=== PATIENT | male | born 1980 | race Caucasian/White ===

== ENCOUNTER 2017-06-02 12:10 | Emergency (ER) | payer OTHER ==
[~2017-06-02] VITALS: Ht 180.3 cm; Wt 74.6 kg
[2017-06-02 12:17] VITALS: TEMP 36.4; O2SAT 100; Ht 180.3 cm; Wt 74.6 kg
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
[2017-06-02] MEDS ORDERED: OPTIRAY 320 IV PRN (13:15)
[2017-06-02 13:34] LABS: ISTAT CREATININE 0.9 mg/dl (0.6-1.3); ISTAT HEMOGLOBIN 16.3 g/dl (14.0-18.0); ISTAT IONIZED CALCIUM 1.16 mmol/l (1.12-1.32)
[2017-06-02 13:42] LABS: BENZODIAZEPINE, URINE POS (NEG); COCAINE,URINE NEG (NEG); PHENCYCLIDINE, URINE NEG (NEG)
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
[2017-06-02 15:08] VITALS: BP 113/67; PULSE 76
[2017-06-06 00:36] LABS: HYDROXYETHYLFLURAZEPAM CONF NEGATIVE NG/ML (CUTOFF=50); HYDROXYMIDAZOLAM NEGATIVE NG/ML (CUTOFF=50); HYDROXYTRIAZOLAM CONF NEGATIVE NG/ML (CUTOFF=50); TEMAZEPAM CONF NEGATIVE NG/ML (CUTOFF=50)
== END 2017-06-02 15:17 | disposition home or self-care (01) ==
LOC: C.EDB 12:12 → C.EDC 15:17
DX: T14.8XXA Other injury of unspecified body region, initial encounter (principal); V53.5XXA Driver of pick-up truck or van injured in collision with car, pick-up truck or van in traffic accident, initial encounter; F17.210 Nicotine dependence, cigarettes, uncomplicated

== ENCOUNTER 2019-10-22 07:08 | Inpatient (IN) ==
--- OUTSIDE RECORDS SUMMARY | 2019-10-22 07:09 | External Medical Summary | Continuity of Care Document ---
:1980 Author Name Bernardo Cortes, Provider Address Unavailable Unavailable , Care Team Providers Name Role Phone Perla Briggs DO. Unavailable [email or web address] PERLA BRIGGS M.D. Unavailable Unavailable Problems Current smoker (305.1) (F17.200) Anxiety (300.00) (F41.9) Polyuria (788.42) (R35.8) Polydipsia (783.5) (R63.1) Abnormal blood chemistry (790.6) (R79.9) Allergies and Adverse Reactions No Known Drug Allergies (Allergy) Medications No Reported Medications Refills: 0 Procedures History of Appendectomy Status: Complete d History of Oral Surgery Tooth Extraction Status: Completed Immunizations Immunizations not documented Family History Grandfather Family history of prostate cancer (V16.42) (Z80.42) Status: Active Mother Family history of diabetes mellitus (V18.0) (Z83.3) Status: Active Social History - Smoking Status Smoker Plan of Treatment Planned Observations Planned Goals not documented Results No Known Results Results not documented Encounters Appointment; Perla Briggs DO 09-Feb-2016 14:45 Encounter Diagnosis: Problem not documented
[2019-10-22] MEDS ORDERED: diazePAM 5 MG TABLET PO ONE (07:25)
[2019-10-22] MEDS ORDERED: GABAPENTIN 1200MG ALCOHOL WITHDRAWAL LOAD PO STA (07:48)
[2019-10-22] MEDS ORDERED: MULTI-VITAMIN INFUSION 10 ML, THIAMINE HCL 100 MG, FOLIC ACID 1 MG in SODIUM CHLORIDE 0... IV ONE (07:48)
[2019-10-22] MEDS ORDERED: GABAPENTIN 600 MG TAB PO SCH ×2 (08:00→13:49)
[2019-10-22 08:12] LABS: Basophils # (auto) 0.03 K/uL (0-0.2); Basophils % (auto) 0.4 %; Eosinophils # (auto) 0.13 K/uL (0-0.5); Eosinophils % (auto) 1.8 %; Hematocrit (blood only) 48.5 % (42-52); Hemoglobin 16.5 g/dL (14.0-18.0); Immature Granulocytes # (auto) 0.03 K/uL (0.00-0.02); Immature Granulocytes % (auto) 0.4 %; Lymphocytes # (auto) 0.93 K/uL (1.2-3.4); Lymphocytes % (auto) 12.9 %; Mean Corpuscular Hemoglobin 33.7 pg (25-34); Mean Platelet Volume 10.3 fL (7.4-10.4); Monocytes # (auto) 0.83 K/uL (0.11-0.59); Monocytes % (auto) 11.5 %; Neutrophils # (auto) 5.26 K/uL (1.4-6.5); Platelet Count 207 K/uL (130-400); RDW Coefficient of Variation 13.4 % (11.5-14.5); RDW Standard Deviation 48.1 fL (36.4-46.3); White Blood Count 7.21 K/uL (4.8-10.8)
[2019-10-22 08:23] LABS: Partial Thromboplastin Time 28.2 Seconds (21.0-31.0); Prothrombin Time 10.3 Seconds (9.0-12.0)
[2019-10-22 08:28] LABS: Albumin Level 3.8 gm/dl (3.4-5.0); BUN Creatinine Ratio 9.7 (10-20); Calcium 8.9 mg/dl (8.5-10.1); Creatinine Clr Calc Pharmacy 106.6 ml/min; Est GFR (African American) 96.1; Est GFR (Non-African American) 82.9; Potassium 3.8 mmol/L (3.5-5.1)
[2019-10-22 08:33] LABS: Bilirubin,Total 0.7 mg/dl (0.2-1); Total Protein 7.8 gm/dl (6.4-8.2)
--- NOTE | 2019-10-22 10:39 | Emergency Department Note ---
Entered by Ally Ortiz acting as a scribe for History of Present Illness General Chief complaint: Alcohol Withdrawal Stated complaint: UNCONTROLLED SHAKING,STUTTERING,CONFUSION Source: patient History of Present Illness Onset (ago): day(s) 2 Location: head (alcohol withdrawal) Severity: similar to prior episodes Pain Consistency: + other (persistent) Quality: + other (alcohol withdrawal) Associated symptoms: + headaches, + shortness of breath and + other (Positive anxiety, panic attack, shaking. Negative trauma, visual or auditory hallucinations. ) Treatments prior to arrival: none The patient is a 38 year old male presenting to the Emergency Department complaining of persistent alcohol withdrawal starting 2 days ago. The patient reports that he normally drinks 24 oz of vodka daily for the past month. He states that 2 days ago he only drank 17 oz of vodka in an effort to ween himself off of alcohol. He explains that he then began shaking and describes this as large movements instead of a tremor. He notes that he then went back to drinking 24 oz of vodka per day but that his shakes have persisted. He adds that he has withdrawn from alcohol before and has been to a rehabilitation facility before where he experienced detox tremors but that his shakiness this time is not similar to that. The patient reports that he is anxious and short of breath. He states that he feels like he is having a panic attack. He explains that he has a headache and describes this as a fullness. 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 He adds that he was taking Kratom up until 1 week ago and is now concerned about his liver function. The patient denies recent trauma and auditory or visual hallucinations. 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 and A total of 10 systems reviewed and were otherwise negative Physical Exam Vital Signs Vital Signs - 24 hr 10/22/19 07:15 10/22/19 07:32 10/22/19 08:06 Temperature 36.8 C Temperature Source Oral Oral Pulse Rate 114 H 101 H Pulse Rhythm Regular Pulse Strength Normal Respiratory Rate 20 15 Respiratory Effort / Characteristics Non-Labored Spontaneous Respiratory Depth Normal Respiratory Pattern Regular Blood Pressure 157/111 H Blood Pressure Mean 126 Blood Pressure Position Sitting Pulse Oximetry 96 Oxygen Delivery Method Room Air Sepsis Recent Fever Within 48 Hours No Sepsis Action Taken by Nursing No Action Required 10/22/19 08:10 10/22/19 08:20 10/22/19 08:30 Temperature Temperature Source Pulse Rate 110 H 104 H 103 H Pulse Rhythm Pulse Strength Respiratory Rate 14 18 20 Respiratory Effort / Characteristics Respiratory Depth Respiratory Pattern Blood Pressure Blood Pressure Mean Blood Pressure Position Pulse Oximetry Oxygen Delivery Method Sepsis Recent Fever Within 48 Hours Sepsis Action Taken by Nursing 10/22/19 08:33 10/22/19 08:40 10/22/19 08:50 Temperature Temperature Source Pulse Rate 102 H 101 H 95 H Pulse Rhythm Pulse Strength Respiratory Rate 21 22 18 Respiratory Effort / Characteristics Respiratory Depth Respiratory Pattern Blood Pressure 155/104 H Blood Pressure Mean 122 Blood Pressure Position Pulse Oximetry Oxygen Delivery Method Sepsis Recent Fever Within 48 Hours Sepsis Action Taken by Nursing 10/22/19 09:00 10/22/19 09:01 10/22/19 09:10 Temperature Temperature Source Pulse Rate 90 90 98 H Pulse Rhythm Pulse Strength Respiratory Rate 18 Respiratory Effort / Characteristics Respiratory Depth Respiratory Pattern Blood Pressure 163/103 H Blood Pressure Mean 113 Blood Pressure Position Pulse Oximetry Oxygen Delivery Method Sepsis Recent Fever Within 48 Hours Sepsis Action Taken by Nursing 10/22/19 09:20 Temperature Temperature Source Pulse Rate 89 Pulse Rhythm Pulse Strength Respiratory Rate 17 Respiratory Effort / Characteristics Respiratory Depth Respiratory Pattern Blood Pressure Blood Pressure Mean Blood Pressure Position Pulse Oximetry Oxygen Delivery Method Sepsis Recent Fever Within 48 Hours Sepsis Action Taken by Nursing Vital signs reviewed. Tachycardic and hypertensive General: Anxious-appearing 38 year old male, in no significant distress. HEENT: No scleral icterus, PERRLA, neck supple. Atraumatic. Cardiovascular: Tachycardic rate and regular rhythm, no extra sounds. Pulmonary: Clear to auscultation bilaterally, normal work of breathing. Abdomen: Soft, nontender, nondistended, positive bowel sounds. Musculoskeletal: Atraumatic, no peripheral edema. Neurologic: Baseline tremor. Patient awake alert and oriented x 3. Skin: Slightly diaphoretic. Warm. No rash Course Course 0722: The patient was evaluated in room B6, and a complete history and physical examination were performed. 0756: I reevaluated the patient at this time. 09: I updated the patient at this time. 0930: I discussed the patients case with Dr. Deny MOE hospitalist. He will evaluate the patient for further management. Administered Medications Enoxaparin Sodium (Lovenox) 40 mg SQ Q24H [facility] Stop: 11/21/19 11:59 Last Admin: 10/22/19 13:13 Dose: Not Given Documented by: [id number] Folic Acid (Folvite) 1 mg PO QAM [facility] Stop: 11/21/19 11:30 Last Admin: 10/22/19 13:12 Dose: 1 mg Documented by: [id number] Gabapentin (Neurontin) 600 mg PO Q8H [facility] Stop: 10/23/19 22:01 Last Admin: 10/23/19 06:01 Dose: 600 mg Documented by: [id number] Potassium Chloride/Sodium Chloride (Normal Saline W/20 Meq Kcl) 20 meq in 1,000 mls @ 125 mls/hr IV .Q8H [facility] Stop: 11/21/19 11:30 Last Admin: 10/23/19 06:49 Dose: 125 mls/hr Documented by: [id number] Infusion: 10/23/19 06:49 Dose: 125 mls/hr Documented by: [id number] Admin: 10/22/19 22:50 Dose: 125 mls/hr Documented by: [id number] Infusion: 10/22/19 22:50 Dose: 0 mls/hr Documented by: [id number] Admin: 10/22/19 12:20 Dose: 125 mls/hr Documented by: [id number] Thiamine HCl (Vitamin B-1) 100 mg PO QAM [facility] Stop: 11/21/19 11:30 Last Admin: 10/22/19 13:12 Dose: 100 mg Documented by: [id number] Discontinued Medications Diazepam (Valium) 10 mg PO NOW ONE Stop: 10/22/19 07:26 Last Admin: 10/22/19 07:31 Dose: 10 mg Documented by: [id number] Gabapentin (Neurontin) 1,200 mg PO TODAY@ [facility] Stop: 10/22/19 08:01 Last Admin: 10/22/19 08:29 Dose: 1,200 mg Documented by: [id number] Gabapentin (Neurontin) 600 mg PO Q6H [facility] Stop: 10/22/19 20:01 Last Admin: 10/22/19 19:59 Dose: 600 mg Documented by: [id number] Admin: 10/22/19 13:12 Dose: 600 mg Documented by: [id number] Multivitamins 10 ml/ Thiamine HCl 100 mg/ Folic Acid 1 mg/Sodium Chloride 1,011.2 mls @ 1,011.2 mls/hr IV .Q1H [facility] Stop: 10/22/19 08:47 Last Infusion: 10/22/19 10:44 Dose: 0 mls/hr Documented by: [id number] Admin: 10/22/19 08:29 Dose: 1,011.2 mls/hr Documented by: [id number] Lorazepam (Ativan) 1 mg in 2 mls @ 2 mls/min IV NOW [facility] Stop: 10/22/19 23:39 Last Admin: 10/22/19 23:49 Dose: 2 mls/min Documented by: [id number] Lorazepam (Ativan) 1 mg PO ONE PRN; Protocol PRN Reason: EtoH Withdrawal AWSS 6-10 Last Admin: 10/22/19 22:54 Dose: 1 mg Documented by: [id number] Medical Decision Making Differential Diagnosis Etiologies such as toxicologic, alcohol withdrawal, infection, hypoglycemia, electrolyte abnormalities, cardiac sources, intracerebral event, neurologic, as well as others were entertained. Medical Records Attestation: I reviewed the patient's medical records. Home Medications Current Medication List: was personally reviewed by me Laboratory Data Attestation: I reviewed the patient's lab results. Result diagrams: 10/23/19 06:31 10/22/19 08:00 Lab Results 10/22/19 10/22/19 10/22/19 Range/Units 08:00 08:00 08:00 WBC 7.21 (4.8-10.8) K/uL RBC 4.90 (4.7-6.1) M/uL Hgb 16.5 (14.0-18.0) g/dL Hct 48.5 (42-52) % MCV 99.0 (80-100) fL MCH 33.7 (25-34) pg MCHC 34.0 (32-36) g/dL RDW Std Deviation 48.1 H (36.4-46.3) fL RDW Coeff of Funmi 13.4 (11.5-14.5) % Plt Count 207 (130-400) K/uL MPV 10.3 (7.4-10.4) fL Immature Gran % (Auto) 0.4 % Neut % (Auto) 73.0 % Lymph % (Auto) 12.9 % Dixie % (Auto) 11.5 % Eos % (Auto) 1.8 % Baso % (Auto) 0.4 % Immature Gran # (Auto) 0.03 H (0.00-0.02) K/uL Neut # (Auto) 5.26 (1.4-6.5) K/uL Lymph # (Auto) 0.93 L (1.2-3.4) K/uL [place] # (Auto) 0.83 H (0.11-0.59) K/uL Eos # (Auto) 0.13 (0-0.5) K/uL Baso # (Auto) 0.03 (0-0.2) K/uL PT (9.0-12.0) Seconds INR (0.9-1.1) APTT (21.0-31.0) Seconds PTT Ratio Sodium 135 L (136-145) mmol/L Potassium 3.8 (3.5-5.1) mmol/L Chloride 105 (98-107) mmol/L Carbon Dioxide 21 (21-32) mmol/L Anion Gap 9.0 (3-11) BUN 11 (7-18) mg/dl Creatinine 1.12 (0.6-1.4) mg/dl Est Cr Clr Drug Dosing 106.6 ml/min Est GFR ( Amer) 96.1 Est GFR (Non-Af Amer) 82.9 BUN/Creatinine Ratio 9.7 L (10-20) Glucose 111 H (70-99) mg/dl Calcium 8.9 (8.5-10.1) mg/dl Total Bilirubin 0.7 (0.2-1) mg/dl AST 54 H (15-37) U/L ALT 76 (12-78) U/L Alkaline Phosphatase 99 (45-117) U/L Total Protein 7.8 (6.4-8.2) gm/dl Albumin 3.8 (3.4-5.0) gm/dl Globulin 4.0 (2.5-4.0) gm/dl Albumin/Globulin Ratio 1.0 (0.9-2) Folate 5.91 (>5.38) ng/ml 10/22/19 Range/Units 08:00 WBC (4.8-10.8) K/uL RBC (4.7-6.1) M/uL Hgb (14.0-18.0) g/dL Hct (42-52) % MCV (80-100) fL MCH (25-34) pg MCHC (32-36) g/dL RDW Std Deviation (36.4-46.3) fL RDW Coeff of Funmi (11.5-14.5) % Plt Count (130-400) K/uL MPV (7.4-10.4) fL Immature Gran % (Auto) % Neut % (Auto) % Lymph % (Auto) % Dix[place] % (Auto) % Eos % (Auto) % Baso % (Auto) % Immature Gran # (Auto) (0.00-0.02) K/uL Neut # (Auto) (1.4-6.5) K/uL Lymph # (Auto) (1.2-3.4) K/uL Dixie # (Auto) (0.11-0.59) K/uL Eos # (Auto) (0-0.5) K/uL Baso # (Auto) (0-0.2) K/uL PT 10.3 (9.0-12.0) Seconds INR 1.0 (0.9-1.1) APTT 28.2 (21.0-31.0) Seconds PTT Ratio 1.0 Sodium (136-145) mmol/L Potassium (3.5-5.1) mmol/L Chloride (98-107) mmol/L Carbon Dioxide (21-32) mmol/L Anion Gap (3-11) BUN (7-18) mg/dl Creatinine (0.6-1.4) mg/dl Est Cr Clr Drug Dosing ml/min Est GFR ( Amer) Est GFR (Non-Af Amer) BUN/Creatinine Ratio (10-20) Glucose (70-99) mg/dl Calcium (8.5-10.1) mg/dl Total Bilirubin (0.2-1) mg/dl AST (15-37) U/L ALT (12-78) U/L Alkaline Phosphatase (45-117) U/L Total Protein (6.4-8.2) gm/dl Albumin (3.4-5.0) gm/dl Globulin (2.5-4.0) gm/dl Albumin/Globulin Ratio (0.9-2) Folate (>5.38) ng/ml ECG Data Attestation: I personally reviewed and interpreted this ECG as follows: Indication: + toxicologic Rate (beats per minute): 104 Rhythm: + sinus tachycardia ECG Intervals/blocks: + Normal QT-c ECG Findings: + Other (No acute ischemia.); no PACs and no PVCs Blood Pressure Blood Pressure Findings: Elevated blood pressure Blood Pressure Disposition: further management by hospitalist MDM Narrative Cardiac Monitoring: An order was placed for continuous cardiac monitoring. The monitor shows a rate of 89 with sinus rhythm. This patient was evaluated and appeared to be in no distress. IV access was obtained and lab work was drawn. Pt was medicated with po valium and a banana bag. Patient's alcohol level is undetectable. Laboratory work is fairly reassuring with the exception of a very mildly elevated AST. Patient did have improvement with his tachycardia and hypertension after fluids and benzodiazepines. He did receive 1200 mg of p.o. gabapentin. Patient will be evaluated by the hospitalist service for further management. Impression & Plan Alcohol withdrawal Discharge Plan Visit Data *Final* Discharge Date/Time: 10/22/19 10:29 Chief Complaint: Alcohol Withdrawal Stated Complaint: UNCONTROLLED SHAKING,STUTTERING,CONFUSION ED Provider: Sharon Gould ED Midlevel Provider: Herb Pimentel Discharge Problem: Alcohol withdrawal Patient Disposition: Admitted As Inpatient Discharge Instructions Interventions: ED Discharge Assessment Last Done: 10/22/19 10:29 Discharge Problem: Alcohol withdrawal Qualifiers: Complication of substance-induced condition: with unspecified complication Qualified Code(s): F10.239 - Alcohol dependence with withdrawal, unspecified The scribe's documentation has been prepared under my direction and personally reviewed by me in its entirety. I confirm that the note above accurately reflects all work, treatment, procedures, and medical decision making performed by me.
--- NOTE | 2019-10-22 11:09 | Electrocardiogram Report ---
Test Reason : Blood Pressure : / mmHG Vent. Rate : 104 BPM Atrial Rate : 104 BPM P-R Int : 156 ms QRS Dur : 082 ms QT Int : 340 ms P-R-T Axes : 043 053 027 degrees QTc Int : 447 ms Sinus tachycardia Otherwise normal ECG No previous ECGs available Confirmed by Pierce Henson [id number]) on 10/22/2019 11:08:48 AM Referred By: REFERRED SELF Confirmed By:Pierce Henson
[2019-10-22] MEDS ORDERED: ACETAMINOPHEN 325 MG TAB PO PRN (11:31)
[2019-10-22] MEDS ORDERED: ONDANSETRON INJ 2 MG/ML 2 ML VIAL IV PRN (11:31)
[2019-10-22] MEDS ORDERED: LORazepam 1 MG TAB PO PRN (11:31)
[2019-10-22] MEDS: NSS + 20MEQ KCL 20 MEQ/1,000 ML BAG IV SCH ×2 (12:20→22:50)
[2019-10-22] MEDS: GABAPENTIN 600 MG TAB PO SCH ×2 (13:12→19:59)
[2019-10-22] MEDS: FOLIC ACID 1 MG TAB PO SCH (13:12)
[2019-10-22] MEDS: THIAMINE HCL 100 MG TAB PO SCH (13:12)
[2019-10-22] MEDS: ENOXAPARIN INJ 40 MG/0.4 ML SYR SQ SCH (13:13)
--- NOTE | 2019-10-22 15:20 | History & Physical Report ---
Date of Service October 22, 2019 Assessment & Plan (1) Alcohol withdrawal: early in the withdrawal process, may not have started yet use Gabapentin scheduled taper, Ativan PO PRN Folic acid daily, thiamine daily check morning labs (2) Alcohol abuse: c/o abdominal distension check abdominal US to look at liver, look for ascites certainly liver function is intact as bilirubin, albumin, INR are all normal check ammonia in the morning long talk with patient and his mother about the dangers of alcohol abuse, cirrhosis he says he wants to quit again he is unsure of whether he wants to go to rehab (3) Tremor: could have essential tremor that he tries to medicate with alcohol will observe symptoms while here certainly his tremor was not significant while here (4) Panic attacks: will likely benefit from outpatient counseling, psych will continue to discuss History of Present Illness Chief Complaint: I have tremors Primary Care Provider: CHANDLER PCP 38 yo male with history of alcohol abuse who presented to the ED this morning with c/o tremors that were persistent despite drinking alcohol. He says that he has a long history of alcohol abuse, drinks vodka, up to 25 oz a day which is a fifth. He says that he completed rehab a year ago, reports that he was sober for 6 months and then he relapsed due to panic attacks and tremors. He said that his rehab was complicated because he went in "cold turkey" and ended up having seizures despite being on phenobarbital. He had to hospitalized briefly and was eventually sent back to rehab. He says that for the past 6 months he was not drinking daily, but he would "get drunk" several times a week. 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 His appetite is not great, however, he has gained weight. His mother says that his stomach has been distended every since leaving rehab, no edema. Moves his bowels regularly. The past month he progressed to drinking daily and his amount peaked at 25oz a day. He has been trying to cut back the past week, down to 17oz per the patient. He gets tremors which are not relieved with drinking which concerned him. He has anxiety and panic attacks. He does not follow with a therapist or psychiatrist, he self medicates with alcohol. He came to the ED this morning mostly because he was concerned the tremors were not going away. His last drink was 4 hours prior to arrival. Allergies Allergy/AdvReac Type Severity Reaction Status Date / Time No Known Allergies Allergy Verified 10/22/19 07:54 Home Medications Home Medications Medication Instructions Recorded Confirmed Type No Known Home Medications 10/22/19 10/22/19 History Past Med/Surg History Medical History History of alcohol abuse Surgical History History of appendectomy Family History (Updated 10/22/19 @ 15:26 by Vahid Barclay DO) Other Depression Social History Preferred Language: Eritrean Communication Ability: Effective Alarm Mechanic Required: No Beliefs That Will Affect Care: None Current Living Situation: Alone Other Information That Helps Us Care for You: No Feels Safe at Home: Yes Safety Concerns: Feels Safe At This Time Smoking Status: Current some day smoker Tobacco Type: cigars ; Cigarettes Per Day: 1 every 2 days ; Do You Dip or Chew Tobacco: No ; Second Hand Exposure: No ; Tobacco Cessation Education Requested by Patient: No Hx Alcohol Use: Yes Alcohol type: hard liquor Hx Substance Use: No Review of Systems Review of Systems: All systems reviewed & are unremarkable except as noted in HPI & below Constitutional: + weight gain; no fever, no chills, no sweats, no weight loss and no insomnia Respiratory: no cough and no dyspnea Cardiovascular: no chest pain and no edema Gastrointestinal: no abdominal pain, no nausea, no vomiting, no constipation and no diarrhea/loose stools Neurologic: no gait abnormality, no seizure-like activity, no headache(s) and no confusion Psychiatric: + anxiety, + panic attacks and + substance abuse Physical Exam Constitutional: WD/WN, vitals as above Eyes: PERRL, conjunctivae normal, anicteric sclerae ENMT: external ear and nose normal, oropharynx normal Neck: trachea midline, no thyromegaly Respiratory: normal respiratory effort, lungs clear to auscultation Cardiovascular: RRR, no murmur, no edema Gastrointestinal (Abdomen): Inspection/Auscultation: + abdomen distended and normal bowel sounds Percussion/Palpation: abdomen soft; abdomen nontender, no guarding, abdomen not rigid and no hepatosplenomegaly Musculoskeletal: no cyanosis or clubbing, extremities motor strength 5/5 Skin: no rashes, warm and dry Neurologic: patellar DTR's 2+ bilat, sensation intact and PERRL, EOMI, accommodation nl, no face palsy, no dysarthria Psychiatric: A+Ox3, euthymic affect Lymphatic: no cervical or axillary lymphadenopathy Results & Data Vital Signs (Past 12 Hours) Vital Signs Temp Pulse Resp BP BP Pulse Ox 10/22/19 11:29 36.7 C 19 154/95 H 99 10/22/19 11:00 80 15 137/97 97 10/22/19 10:30 90 23 158/106 H 97 10/22/19 10:01 98 H 19 10/22/19 10:00 96 H 20 137/100 10/22/19 09:48 88 20 10/22/19 09:20 89 17 10/22/19 09:10 98 H 10/22/19 09:01 90 10/22/19 09:00 90 18 163/103 H 10/22/19 08:50 95 H 18 10/22/19 08:40 101 H 22 10/22/19 08:33 102 H 21 155/104 H 10/22/19 08:30 103 H 20 10/22/19 08:20 104 H 18 10/22/19 08:10 110 H 14 10/22/19 08:06 101 H 15 10/22/19 07:15 36.8 C 114 H 20 157/111 H 96 10/22/19 06:06 103 H 17 132/77 Laboratory Results Laboratory Results - last 24 hr 10/22/19 10/22/19 10/22/19 08:00 08:00 08:00 WBC 7.21 RBC 4.90 Hgb 16.5 Hct 48.5 MCV 99.0 MCH 33.7 MCHC 34.0 RDW Std Deviation 48.1 H RDW Coeff of Funmi 13.4 Plt Count 207 MPV 10.3 Immature Gran % (Auto) 0.4 Neut % (Auto) 73.0 Lymph % (Auto) 12.9 [place] % (Auto) 11.5 Eos % (Auto) 1.8 Baso % (Auto) 0.4 Immature Gran # (Auto) 0.03 H Neut # (Auto) 5.26 Lymph # (Auto) 0.93 L [place] # (Auto) 0.83 H Eos # (Auto) 0.13 Baso # (Auto) 0.03 PT INR APTT PTT Ratio Sodium 135 L Potassium 3.8 Chloride 105 Carbon Dioxide 21 Anion Gap 9.0 BUN 11 Creatinine 1.12 Est Cr Clr Drug Dosing 106.6 Est GFR ( Amer) 96.1 Est GFR (Non-Af Amer) 82.9 BUN/Creatinine Ratio 9.7 L Glucose 111 H Calcium 8.9 Total Bilirubin 0.7 AST 54 H ALT 76 Alkaline Phosphatase 99 Total Protein 7.8 Albumin 3.8 Globulin 4.0 Albumin/Globulin Ratio 1.0 Folate 5.91 Ethyl Alcohol mg/dL 10/22/19 10/22/19 08:00 09:46 WBC RBC Hgb Hct MCV MCH MCHC RDW Std Deviation RDW Coeff of Funmi Plt Count MPV Immature Gran % (Auto) Neut % (Auto) Lymph % (Auto) [place] % (Auto) Eos % (Auto) Baso % (Auto) Immature Gran # (Auto) Neut # (Auto) Lymph # (Auto) [place] # (Auto) Eos # (Auto) Baso # (Auto) PT 10.3 INR 1.0 APTT 28.2 PTT Ratio 1.0 Sodium Potassium Chloride Carbon Dioxide Anion Gap BUN Creatinine Est Cr Clr Drug Dosing Est GFR ( Amer) Est GFR (Non-Af Amer) BUN/Creatinine Ratio Glucose Calcium Total Bilirubin AST ALT Alkaline Phosphatase Total Protein Albumin Globulin Albumin/Globulin Ratio Folate Ethyl Alcohol mg/dL < 3.0 Medications Administered Current Inpatient Medications Acetaminophen (Tylenol) 650 mg PO Q4H PRN PRN Reason: Pain or Fever Stop: 11/21/19 11:30 Enoxaparin Sodium (Lovenox) 40 mg SQ Q24H [facility] Stop: 11/21/19 11:59 Last Admin: 10/22/19 13:13 Dose: Not Given Documented by: Folic Acid (Folvite) 1 mg PO QAM [facility] Stop: 11/21/19 11:30 Last Admin: 10/22/19 13:12 Dose: 1 mg Documented by: Gabapentin (Neurontin) 600 mg PO Q6H [facility] Stop: 10/22/19 20:01 Last Admin: 10/22/19 13:12 Dose: 600 mg Documented by: Gabapentin (Neurontin) 600 mg PO Q8H [facility] Stop: 10/23/19 22:01 Gabapentin (Neurontin) 600 mg PO Q12H [facility] Stop: 10/24/19 22:01 Gabapentin (Neurontin) 600 mg PO Q24H [facility] Stop: 10/25/19 22:01 Potassium Chloride/Sodium Chloride (Normal Saline W/20 Meq Kcl) 20 meq in 1,000 mls @ 125 mls/hr IV .Q8H [facility] Stop: 11/21/19 11:30 Last Admin: 10/22/19 12:20 Dose: 125 mls/hr Documented by: Lorazepam (Ativan) 1 mg PO ONE PRN; Protocol PRN Reason: EtoH Withdrawal AWSS 6-10 Ondansetron HCl (Zofran) 4 mg IV Q6H PRN PRN Reason: Nausea Stop: 11/21/19 11:30 Thiamine HCl (Vitamin B-1) 100 mg PO QAM [facility] Stop: 11/21/19 11:30 Last Admin: 10/22/19 13:12 Dose: 100 mg Documented by: Code Status & VTE Plan Code Status full code VTE Prophylaxis Plan VTE Prophylaxis will be ordered: Yes PG Care Time/CCT Total # of Minutes Spent Total Time Spent with Patient: Total time spent is greater than 50% in coordi nation of care (as documented) at patient's floor/unit and/or counseling patient: Coding Level of Care Code 63682 Initial Inpt Care Lvl 2 Diagnoses Alcohol withdrawal F10.239 Complication of substance-induced condition: with unspecified complication Alcohol abuse F10.10 Tremor R25.1 Panic attacks F41.0 (1) Alcohol withdrawal Complication of substance-induced condition: with unspecified complication Qualified Code(s): F10.239 - Alcohol dependence with withdrawal, unspecified
--- NOTE | 2019-10-22 20:01 | Ultrasound Report ---
US abdomen complete CLINICAL HISTORY: Distension, swelling, alcohol abuse COMPARISON STUDY: CT of the abdomen and pelvis June 02, 2017. FINDINGS: This exam is compromised by suboptimal penetration. Hepatic echogenicity is increased. No h epatic lesions are identified. There is no biliary ductal dilatation or gallbladder is contracted. No gallstones are noted. The size of the spleen is normal. The pancreas is partially obscured. The panc reas appears slightly hypoechoic and prominent. This could be artifactual. There is no hydronephrosis . The right kidney measures 11.4 cm and the left measures 11.6 cm. The caliber of the abdominal aorta is normal. Visualized portions of the IVC are patent. No ascites is identified. IMPRESSION: 1. Increased hepatic echogenicity which favors fatty infiltration. 2. No gallstones or biliary ductal dilatation. Contracted gallbladder. 3. Hypoechoic pancreas. This may be artifactual however could be correlated with lipase level to excl ude acute pancreatitis. ACT 112: Negative or not required by law. Electronically signed by: Juventino Buchanan M.D. 10/22/2019 7:59 PM
[2019-10-22] MEDS ORDERED: Nursing to Pharmacy Communication ONE (20:39)
[2019-10-22 20:52] LABS: Amphetamines+Metham, Urine Neg (Neg); Barbiturates, Urine Neg (Neg); Benzodiazepine, Urine Neg (Neg); Cocaine, Urine Neg (Neg); MDMA (Ecstacy), Urine Neg (Neg); Methadone, Urine Neg (Neg); Opiate, Urine Neg (Neg); Phencyclidine, Urine Neg (Neg)
[2019-10-22] MEDS ORDERED: LORazepam 1 MG/2 ML VIAL IV STA (23:38)
[2019-10-23] MEDS ORDERED: GABAPENTIN 600 MG TAB PO SCH (03:49)
[2019-10-23] MEDS: GABAPENTIN 600 MG TAB PO SCH ×3 (06:01→22:04)
[2019-10-23 06:43] LABS: Hematocrit (blood only) 46.2 % (42-52); Hemoglobin 15.3 g/dL (14.0-18.0); Mean Corpuscular Hgb Conc 33.1 g/dL (32-36); Mean Corpuscular Volume 99.6 fL (80-100); Mean Platelet Volume 10.2 fL (7.4-10.4); Platelet Count 167 K/uL (130-400); RDW Coefficient of Variation 13.7 % (11.5-14.5); RDW Standard Deviation 49.7 fL (36.4-46.3); Red Blood Count 4.64 M/uL (4.7-6.1); White Blood Count 5.48 K/uL (4.8-10.8)
[2019-10-23] MEDS: NSS + 20MEQ KCL 20 MEQ/1,000 ML BAG IV SCH (06:49)
[2019-10-23 07:25] LABS: Albumin Level 3.2 gm/dl (3.4-5.0); BUN Creatinine Ratio 16.3 (10-20); Calcium 8.5 mg/dl (8.5-10.1); Creatinine Clr Calc Pharmacy 135.1 ml/min; Est GFR (African American) 125.7; Est GFR (Non-African American) 108.5; Potassium 3.9 mmol/L (3.5-5.1)
[2019-10-23 07:28] LABS: Albumin Globulin Ratio 0.9 (0.9-2); Bilirubin,Total 0.6 mg/dl (0.2-1); Globulin 3.4 gm/dl (2.5-4.0); Total Protein 6.6 gm/dl (6.4-8.2)
[2019-10-23] MEDS: THIAMINE HCL 100 MG TAB PO SCH (08:16)
[2019-10-23] MEDS: FOLIC ACID 1 MG TAB PO SCH (08:16)
--- NOTE | 2019-10-23 11:01 | Hospitalist Progress Note ---
Date of Service October 23, 2019 Assessment & Plan (1) Alcohol withdrawal: continue Gabapentin scheduled taper, Ativan PO PRN q12 Folic acid daily, thiamine daily CMP and CBC stable stop IV fluids as he is eating and drinking downgrade to medical floor no concerns for DT at this point (2) Alcohol abuse: c/o abdominal distension abdominal US shows some fatty infiltration, no ascites noted certainly liver function is intact as bilirubin, albumin, INR are all normal ammonia normal long talk with patient and his mother about the dangers of alcohol abuse, cirrhosis he says he wants to quit again he is unsure of whether he wants to go to rehab will discuss further the close he gets to discharge (3) Tremor: could have essential tremor that he tries to medicate with alcohol will observe symptoms while here certainly his tremor is not significant while here (4) Panic attacks: will likely benefit from outpatient counseling, psych will continue to discuss Admission and Anticipated Discharge Date Admission Date: October 22, 2019 Subjective patient sleeping or resting in bed most of the day woke the patient up, he then c/o some tremors, wondering if he could have Ativan discussed that he was not exhibiting active withdrawal eating well today reviewed labs, CMP and CBC stable discussed with him the results of the abdominal US, no ascites seen, some fatty changes in liver noted will downgrade to medical floor, d/c IV fluids Review of Systems Review of Systems: All systems reviewed & are unremarkable except as noted in HPI & below Neurologic: + tremor(s) Psychiatric: + abnormal sleep pattern (sleeping a lot during the day) and + anxiety Physical Exam Constitutional: WD/WN, vitals as above Eyes: PERRL, conjunctivae normal, anicteric sclerae ENMT: external ear and nose normal, oropharynx normal Neck: trachea midline, no thyromegaly Respiratory: normal respiratory effort, lungs clear to auscultation Cardiovascular: RRR, no murmur, no edema Gastrointestinal (Abdomen): Inspection/Auscultation: + abdomen distended and normal bowel sounds Percussion/Palpation: abdomen soft; abdomen nontender, no guarding, abdomen not rigid and no hepatosplenomegaly Musculoskeletal: no cyanosis or clubbing, extremities motor strength 5/5 Skin: no rashes, warm and dry Neurologic: patellar DTR's 2+ bilat, sensation intact and PERRL, EOMI, accommodation nl, no face palsy, no dysarthria Psychiatric: Orientation: alert and oriented x 3 Affect: + anxious affect Lymphatic: no cervical or axillary lymphadenopathy Results & Data ([facility]) Vital Signs (Past 12 Hours) Vital Signs Temp Pulse Pulse Resp BP BP Pulse Ox 10/23/19 08:00 77 10/23/19 07:25 36.9 C 90 18 151/103 H 98 10/23/19 03:31 36.7 C 78 18 143/96 H 97 10/23/19 00:00 96 H 10/22/19 23:14 36.6 C 87 19 157/99 H 99 Laboratory Results Laboratory Results - last 24 hr 10/22/19 10/23/19 10/23/19 Unknown 06:31 06:31 WBC 5.48 RBC 4.64 L Hgb 15.3 Hct 46.2 MCV 99.6 MCH 33.0 MCHC 33.1 RDW Std Deviation 49.7 H RDW Coeff of Funmi 13.7 Plt Count 167 MPV 10.2 Sodium 137 Potassium 3.9 Chloride 108 H Carbon Dioxide 24 Anion Gap 5.0 BUN 15 Creatinine 0.89 Est Cr Clr Drug Dosing 135.1 Est GFR ( Amer) 125.7 Est GFR (Non-Af Amer) 108.5 BUN/Creatinine Ratio 16.3 Glucose 95 Calcium 8.5 Total Bilirubin 0.6 AST 35 ALT 56 Alkaline Phosphatase 79 Ammonia Total Protein 6.6 Albumin 3.2 L Globulin 3.4 Albumin/Globulin Ratio 0.9 Urine Opiates Screen Neg Ur Methadone, Qual Neg Urine Barbiturates Neg Ur Phencyclidine (PCP) Neg U Amphetamin/Meth Scrn Neg MDMA (Ecstasy) Screen Neg U Benzodiazepines Scrn Neg Ur Cocaine Metabolite Neg U Marijuana (THC) Screen Neg 10/23/19 06:31 WBC RBC Hgb Hct MCV MCH MCHC RDW Std Deviation RDW Coeff of Funmi Plt Count MPV Sodium Potassium Chloride Carbon Dioxide Anion Gap BUN Creatinine Est Cr Clr Drug Dosing Est GFR ( Amer) Est GFR (Non-Af Amer) BUN/Creatinine Ratio Glucose Calcium Total Bilirubin AST ALT Alkaline Phosphatase Ammonia 25.0 Total Protein Albumin Globulin Albumin/Globulin Ratio Urine Opiates Screen Ur Methadone, Qual Urine Barbiturates Ur Phencyclidine (PCP) U Amphetamin/Meth Scrn MDMA (Ecstasy) Screen U Benzodiazepines Scrn Ur Cocaine Metabolite U Marijuana (THC) Screen Diagnostic Findings US abdomen complete CLINICAL HISTORY: Distension, swelling, alcohol abuse COMPARISON STUDY: CT of the abdomen and pelvis June 02, 2017. FINDINGS: This exam is compromised by suboptimal penetration. Hepatic echogenicity is increased. No hepatic lesions are identified. There is no biliary ductal dilatation or gallbladder is contracted. No gallstones are noted. The size of the spleen is normal. The pancreas is partially obscured. The pancreas appears slightly hypoechoic and prominent. This could be artifactual. There is no hydronephrosis. The right kidney measures 11.4 cm and the left measures 11.6 cm. The caliber of the abdominal aorta is normal. Visualized portions of the IVC are patent. No ascites is identified. IMPRESSION: 1. Increased hepatic echogenicity which favors fatty infiltration. 2. No gallstones or biliary ductal dilatation. Contracted gallbladder. 3. Hypoechoic pancreas. This may be artifactual however could be correlated with lipase level to exclude acute pancreatitis. Medications Administered Current Inpatient Medications Acetaminophen (Tylenol) 650 mg PO Q4H PRN PRN Reason: Pain or Fever Stop: 11/21/19 11:30 Enoxaparin Sodium (Lovenox) 40 mg SQ Q24H [facility] Stop: 11/21/19 11:59 Last Admin: 10/23/19 12:20 Dose: Not Given Documented by: Folic Acid (Folvite) 1 mg PO QAM [facility] Stop: 11/21/19 11:30 Last Admin: 10/23/19 08:16 Dose: 1 mg Documented by: Gabapentin (Neurontin) 600 mg PO Q8H [facility] Stop: 10/23/19 22:01 Last Admin: 10/23/19 13:46 Dose: 600 mg Documented by: Gabapentin (Neurontin) 600 mg PO Q12H [facility] Stop: 10/24/19 22:01 Gabapentin (Neurontin) 600 mg PO Q24H KEN Stop: 10/25/19 22:01 Lorazepam (Ativan) 1 mg PO Q12 PRN PRN Reason: Anxiety/Agitation Stop: 11/22/19 10:58 Last Admin: 10/23/19 11:42 Dose: 1 mg Documented by: Ondansetron HCl (Zofran) 4 mg IV Q6H PRN PRN Reason: Nausea Stop: 11/21/19 11:30 Thiamine HCl (Vitamin B-1) 100 mg PO QAM [facility] Stop: 11/21/19 11:30 Last Admin: 10/23/19 08:16 Dose: 100 mg Documented by: PG Care Time/CCT Total # of Minutes Spent Total Time Spent with Patient: Total time spent is greater than 50% in coordina tion of care (as documented) at patient's floor/unit and/or counseling patient: Coding Level of Care Code 22978 Subseq Hosp Care Lvl 2 Diagnoses Alcohol withdrawal F10.239 Complication of substance-induced condition: with unspecified complication Alcohol abuse F10.10 Tremor R25.1 Panic attacks F41.0 (1) Alcohol withdrawal Complication of substance-induced condition: with unspecified complication Qualified Code(s): F10.239 - Alcohol dependence with withdrawal, unspecified
[2019-10-23] MEDS: LORazepam 1 MG TAB PO PRN ×2 (11:42→23:57)
[2019-10-23] MEDS: ENOXAPARIN INJ 40 MG/0.4 ML SYR SQ SCH (12:20)
[2019-10-24] MEDS: THIAMINE HCL 100 MG TAB PO SCH (07:37)
[2019-10-24] MEDS: FOLIC ACID 1 MG TAB PO SCH (07:37)
[2019-10-24] MEDS ORDERED: GABAPENTIN 600 MG TAB PO SCH (07:49)
[2019-10-24] MEDS: GABAPENTIN 600 MG TAB PO SCH ×2 (09:53→22:05)
[2019-10-24] MEDS ORDERED: NURSING DECISION MEDICATION ONE (10:41)
[2019-10-24] MEDS ORDERED: SODIUM CHLORIDE 0.65% NA SOLN 45 ML (OCEAN) ONE (10:44)
[2019-10-24] MEDS ORDERED: SODIUM CHLORIDE 0.65% NA SOLN 45 ML (OCEAN) PRN (10:46)
--- NOTE | 2019-10-24 11:59 | Hospitalist Progress Note ---
Date of Service October 24, 2019 Assessment & Plan (1) Alcohol withdrawal: continue Gabapentin scheduled taper, Ativan PO PRN q12 Folic acid daily, thiamine daily CMP and CBC stable no concerns for DT at this point plan for d/c tomorrow, numbers for [facility] alcohol support given (2) Alcohol abuse: c/o abdominal distension abdominal US shows some fatty infiltration, no ascites noted certainly liver function is intact as bilirubin, albumin, INR are all normal ammonia normal long talk with patient and his mother about the dangers of alcohol abuse, cirrhosis he says he wants to quit again he will use outpatient services on discharge, provided with number for [facility] services (3) Tremor: could have essential tremor that he tries to medicate with alcohol will observe symptoms while here has a mild tremor today will start on Propranolol 40mg BID will need a PCP, refer to [facility] since he has no insurance (4) Panic attacks: will likely benefit from outpatient counseling, psych will continue to discuss but without insurance it will be difficult for him (5) Rhinorrhea: likely allergies continue Benadryl and added Flonase BID can provide script on discharge Admission and Anticipated Discharge Date Admission Date: October 22, 2019 Anticipated date of discharge: 10/25/19 Subjective patient feeling better today less tremors, asked about starting beta [place], told him we could try Propranolol discussed going home, he will be ready tomorrow eating well, ambulating, still with some mild withdrawal symptoms discussed a plan on discharge, will need PCP and international project manager discussed with him, he has no insurance will need to go to [facility], gave him numbers for [facility] alcohol support groups/counseling c/o rhinorrhea, Benadryl helped a little, will try some Flonase Review of Systems Review of Systems: All systems reviewed & are unremarkable except as noted in HPI & below Constitutional: no fever, no fatigue and no weakness Ear, Nose, Mouth, Throat: + nasal congestion and + nasal discharge Respiratory: no cough and no dyspnea Cardiovascular: no chest pain and no edema Gastrointestinal: no abdominal pain, no nausea, no vomiting, no constipation and no diarrhea/loose stools Physical Exam Constitutional: WD/WN, vitals as above Eyes: PERRL, conjunctivae normal, anicteric sclerae ENMT: Ears: no hearing impairment and no TM abnormality Nose: + nasal discharge Mouth: no oropharynx abnormality and no oral mucosal abnormality Neck: trachea midline, no thyromegaly Respiratory: normal respiratory effort, lungs clear to auscultation Cardiovascular: RRR, no murmur, no edema Gastrointestinal (Abdomen): Inspection/Auscultation: normal bowel sounds; abdomen not distended Percussion/Palpation: abdomen soft; abdomen nontender, no guarding, abdomen not rigid and no hepatosplenomegaly Musculoskeletal: no cyanosis or clubbing, extremities motor strength 5/5 Skin: no rashes, warm and dry Neurologic: patellar DTR's 2+ bilat, sensation intact and PERRL, EOMI, accommodation nl, no face palsy, no dysarthria Psychiatric: A+Ox3, euthymic affect Orientation: alert and oriented x 3 Affect: + anxious affect Lymphatic: no cervical or axillary lymphadenopathy Results & Data ([facility]) Vital Signs (Past 12 Hours) Vital Signs Temp Pulse Resp BP Pulse Ox 10/24/19 07:30 36.9 C 71 18 118/75 96 10/24/19 00:27 36.7 C 69 20 137/90 97 Medications Administered Current Inpatient Medications Acetaminophen (Tylenol) 650 mg PO Q4H PRN PRN Reason: Pain or Fever Stop: 11/21/19 11:30 Enoxaparin Sodium (Lovenox) 40 mg SQ Q24H [facility] Stop: 11/21/19 11:59 Last Admin: 10/23/19 12:20 Dose: Not Given Documented by: Folic Acid (Folvite) 1 mg PO QAM [facility] Stop: 11/21/19 11:30 Last Admin: 10/24/19 07:37 Dose: 1 mg Documented by: Gabapentin (Neurontin) 600 mg PO Q12H [facility] Stop: 10/24/19 22:01 Last Admin: 10/24/19 09:53 Dose: 600 mg Documented by: Gabapentin (Neurontin) 600 mg PO Q24H [facility] Stop: 10/25/19 22:01 Lorazepam (Ativan) 1 mg PO Q12 PRN PRN Reason: Anxiety/Agitation Stop: 11/22/19 10:58 Last Admin: 10/23/19 23:57 Dose: 1 mg Documented by: Ondansetron HCl (Zofran) 4 mg IV Q6H PRN PRN Reason: Nausea Stop: 11/21/19 11:30 Propranolol HCl (Inderal) 40 mg PO BID KEN Stop: 11/23/19 11:44 Sodium Chloride ([place] Nasal) 1 sprays NA PRN PRN PRN Reason: Dryness Stop: 11/23/19 10:45 Thiamine HCl (Vitamin B-1) 100 mg PO QAM [facility] Stop: 11/21/19 11:30 Last Admin: 10/24/19 07:37 Dose: 100 mg Documented by: PG Care Time/CCT Total # of Minutes Spent Total Time Spent with Patient: Total time spent is greater than 50% in coordination of care (as documented) at patient's floor/unit and/or counseling patient: Coding Level of Care Code 96308 Subseq Hosp Care Lvl 2 Diagnoses Alcohol withdrawal F10.239 Complication of substance-induced condition: with unspecified complication Alcohol abuse F10.10 Tremor R25.1 Panic attacks F41.0 Rhinorrhea J00 (1) Alcohol withdrawal Complication of substance-induced condition: with unspecified complication Qualified Code(s): F10.239 - Alcohol dependence with withdrawal, unspecified
[2019-10-24] MEDS: ENOXAPARIN INJ 40 MG/0.4 ML SYR SQ SCH (12:20)
[2019-10-24] MEDS: LORazepam 1 MG TAB PO PRN ×2 (12:20→22:07)
[2019-10-24] MEDS: PROPRANOLOL HCL 20 MG TAB PO SCH ×2 (12:47→20:30)
[2019-10-24] MEDS: FLUTICASONE PROPIONATE NA SPR 16 GM BTL SCH ×2 (20:31→23:12)
[2019-10-25] MEDS: FOLIC ACID 1 MG TAB PO SCH (07:30)
[2019-10-25] MEDS: PROPRANOLOL HCL 20 MG TAB PO SCH (07:30)
[2019-10-25] MEDS: THIAMINE HCL 100 MG TAB PO SCH (07:30)
[2019-10-25 08:03] LABS: Creatinine Clr Calc Pharmacy 129.3 ml/min; Est GFR (African American) 120.3; Est GFR (Non-African American) 103.8
--- NOTE | 2019-10-25 10:20 | Discharge Summary ---
Date of Service October 25, 2019 Admission HPI Per Admitting Provider 38 yo male with history of alcohol abuse who presented to the ED this morning with c/o tremors that were persistent despite drinking alcohol. He says that he has a long history of alcohol abuse, drinks vodka, up to 25 oz a day which is a fifth. He says that he completed rehab a year ago, reports that he was sober for 6 months and then he relapsed due to panic attacks and tremors. He said that his rehab was complicated because he went in "cold turkey" and ended up having seizures despite being on phenobarbital. He had to hospitalized briefly and was eventually sent back to rehab. He says that for the past 6 months he was not drinking daily, but he would "get drunk" several times a week. 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 His appetite is not great, however, he has gained weight. His mother says that his stomach has been distended every since leaving rehab, no edema. Moves his bowels regularly. The past month he progressed to drinking daily and his amount peaked at 25oz a day. He has been trying to cut back the past week, down to 17oz per the patient. He gets tremors which are not relieved with drinking which concerned him. He has anxiety and panic attacks. He does not follow with a therapist or psychiatrist, he self medicates with alcohol. He came to the ED this morning mostly because he was concerned the tremors were not going away. His last drink was 4 hours prior to arrival. Principal Diagnosis Alcohol abuse with acute withdrawal Discharge Exam Constitutional WD/WN, vitals as above Eyes PERRL, conjunctivae normal, anicteric sclerae ENMT external ear and nose normal, oropharynx normal Ears: no hearing impairment and no TM abnormality Nose: + nasal discharge Mouth: no oropharynx abnormality and no oral mucosal abnormality Neck trachea midline, no thyromegaly Respiratory normal respiratory effort, lungs clear to auscultation Cardiovascular RRR, no murmur, no edema Gastrointestinal (Abdomen) Inspection/Auscultation: normal bowel sounds; abdomen not distended Percussion/Palpation: abdomen soft; abdomen nontender, no guarding, abdomen not rigid and no hepatosplenomegaly Musculoskeletal no cyanosis or clubbing, extremities motor strength 5/5 Skin no rashes, warm and dry Neurologic patellar DTR's 2+ bilat, sensation intact and PERRL, EOMI, accommodation nl, no face palsy, no dysarthria Psychiatric A+Ox3, euthymic affect Orientation: alert and oriented x 3 Affect: + anxious affect Lymphatic no cervical or axillary lymphadenopathy Discharge Data Allergies Allergy/AdvReac Type Severity Reaction Status Date / Time No Known Allergies Allergy Verified 10/22/19 07:54 Consultations 10/22/19 09:41 ED Decision to Admit Stat Ordered Studies 10/22/19 14:07 US abdomen complete Routine Hospital Course (1) Alcohol withdrawal: treated with Gabapentin taper, Ativan PO PRN q12 Folic acid daily, thiamine daily CMP and CBC stable no concerns for DT at this point will d/c on Librium taper over two weeks to help with symptoms (2) Alcohol abuse: c/o abdominal distension abdominal US shows some fatty infiltration, no ascites noted certainly liver function is intact as bilirubin, albumin, INR are all normal ammonia normal long talk with patient and his mother about the dangers of alcohol abuse, cirrhosis he says he wants to quit again he will use outpatient services on discharge, provided with [facility] for [facility] nurse navigator offered to call and make appointments with [facility] and [facility] but he refused, wanted to call himself (3) Tremor: could have essential tremor that he tries to medicate with alcohol will observe symptoms while here has a mild tremor all the time started on Propranolol 40mg BID, tolerated well will need a PCP, refer to [facility] since he has no insurance (4) Panic attacks: will likely benefit from outpatient counseling, psych will continue to discuss but without insurance it will be difficult for him if he establishes with a PCP then they can refer for psychiatry (5) Rhinorrhea: likely allergies continue Benadryl and added Flonase BID can provide script on discharge Total Time Total Time Spent Total Time Spent (In Minutes): 31 minutes Total Time Includes: Examination of the Patient, Discharge Planning and Medication Reconciliation Discharge Plan Discharge Items Patient Disposition: Home - Self-Care Reason For Visit: alcohol withdrawal Discharge Diagnosis: Alcohol withdrawal Tremors Anxiety Condition on Discharge: Good Goals: stay sober improve control over tremors Activity: Resume your previous activity Driving/Machine Use: Resume 1 day after discharge Weightbearing: Full weightbearing Non-emergency contact: Primary Care Provider Call non-emergency contact if: you have any medication questions and your symptoms worsen Follow-up/Referrals: PCP,NO [Primary Care Provider] - (Please make a follow up appointment with you primary care doctor for within 7 days of discharge.) Diet: Regular Addtl Attending Provider Instructions: Medications: - PROPRANOLOL: 40MG twice a day to help with tremors - CHLORDIAZEPOXIDE: 25mg twice a day for 10 days then take daily for 10 days then stop - FLONASE: 2 sprays twice a day for nasal congestion, can use as needed - BENADRYL: use as needed for nasal congestion Alcohol withdrawal, alcohol abuse as we discussed, there is no evidence of cirrhosis at this time, liver grossly normal on US and albumin, INR, ammonia, liver enzymes all normal if you stop drinking now you can prevent cirrhosis you were treated with Gabapentin while here, no further dosing needed you also received some Ativan as needed will use chlordiazepoxide for withdrawal, recommend that you take 25mg twice a day for 10 days then 25mg daily for 10 days then stop you were given information on [facility] Alcohol support services by Sara Katz, my nurse navigator, please call them today when you get home get information on AA meetings, get a sponsor you need to take control of your disease now before you do irreversible damage to your liver Essential tremors, anxiety started on Propranolol 40mg twice a day, continue this dose as it will help tremors as we discussed, I cannot start you on anxiety medication at this time as I do not follow patients in a clinic, this should be done by a PCP who can follow your progress you were given information on [facility], recommend that you call them today to set up appt they can possibly refer you for therapy/psychiatry evaluations it is essential that you get proper care so that you no longer self medicate with alcohol Pending Studies at Discharge: No Stand-Alone Forms: [employer], Work/School Release (Inpt), Smoking Cessation Medications and DC Order Prescriptions: New propranolol 40 mg tablet 40 mg PO BID 30 Days Qty: 60 RF: 2 fluticasone propionate 50 mcg/actuation [place],Suspension 2 spray NA BID 10 Days Qty: 15.8 RF: 1 chlordiazepoxide HCl 25 mg capsule 25 mg PO BID PRN (Reason: alcohol withdrawal) Qty: 30 RF: 0 No Action No Known Home Medications RF: 0 Discharge Orders: Discharge Order (Routine); Ordered 10/25/19 Ordered By: Vahid Barclay Admission Data Admit Date/Time: 10/22/19 09:32 Attending Provider: Vahid Barclay Admit Provider: Vahid Barclay Primary Care Provider: PCP,NO Other Providers: Vahid Barclay Other Interventions: Discharge Summary Assessment (RN) Last Done: 10/25/19 10:10 DC Date/Time DO NOT enter until pt leaves facility: 10/25/19 11:05 Coding Level of Care Code D/C Day Management >30 mins Diagnoses Alcohol withdrawal F10.239 Complication of substance-induced condition: with unspecified complication Alcohol abuse F10.10 Tremor R25.1 Panic attacks F41.0 Rhinorrhea J00
[2019-10-25] MEDS: LORazepam 1 MG TAB PO PRN (10:23)
[2019-10-25] MEDS ORDERED: GABAPENTIN 600 MG TAB PO SCH ×2 (19:49→22:00)
== END 2019-10-25 11:05 | disposition home or self-care (01) | DRG 897 ==
LOC: ED 07:08 → 2S 09:32 → 2W 10-23 11:00 → 4W 10-23 18:20

== ENCOUNTER 2019-12-17 12:26 | Inpatient (IN) ==
[2019-12-17] MEDS ORDERED: MULTI-VITAMIN INFUSION 10 ML, THIAMINE HCL 100 MG, FOLIC ACID 1 MG in SODIUM CHLORIDE 0... IV ONE (12:56)
[2019-12-17] MEDS ORDERED: LORazepam 2 MG/4 ML VIAL IV STA (13:00)
--- NOTE | 2019-12-17 13:12 | Emergency Department Note ---
Impression & Plan Alcohol withdrawal, Alcohol abuse ED Provider Note NAME: FRANCE COWAN AGE: 39 SEX: M ARRIVES VIA: Walk-In INFORMANT: [Patient] ED PROVIDER(S): Yrn Colvin MD CHIEF COMPLAINT: Alcohol withdrawal PLAN: Disposition: Admitted Condition: Guarded MEDICAL DECISION MAKING: The patient is a 39-year-old male with a significant history of alcohol abuse. He presented with concerns for withdrawal and request for treatment. The patient was tachycardic and hypertensive. Cardiac monitoring, EKG, chest x-ray, blood work and urinalysis were performed. The patient was hydrated with normal saline and was given a banana bag. IV Ativan was administered. The patient did require several doses of IV Ativan. The patient had a consultation placed with internal medicine for inpatient management due to concerns about alcohol withdrawal. He does have mild elevation of his LFTs but coags are normal. His alcohol level is moderately elevated at 0.264. Triage Nursing notes reviewed and agree them. [Prior medical records reviewed] prior history of alcohol withdrawal and alcohol abuse Vital Signs: reviewed and remarkable for hypertension and tachycardia Differential diagnosis: Alcohol intoxication, alcohol withdrawal, toxicologic, infection, hypoglycemia, electrolyte abnormalities, cardiac sources, intracerebral event, neurologic, trauma, as well as other pathologies. ER treatment provided: Normal saline 1 L bolus Banana bag 1 L IV Ativan times multiple doses Diagnostics interpreted by me: ECG: Rate: 120 Rhythm: Sinus tachycardia [place]: Normal QRS: Normal ST segements: No elevation or depression. Other: No PACs or PVCs. Cardiac Monitoring: Cardiac monitoring ordered by me: The patient was placed on continuous cardiac monitoring and observed. It revealed a sinus tachycardic rhythm at 119 beats per minute without ectopy or evidence of dysrhythmia. Laboratory studies: Unremarkable CBC and chemistry panel. The patient does have mild elevation of his LFTs. He has moderate elevation of his alcohol level. Tylenol salicylate levels negative. Urine drug screen pending Imaging studies: Imaging studies: Chest x-ray. Findings: A chest x-ray was performed and revealed no pneumothorax, effusion, infiltrate, pulmonary edema, free air under the diaphragm, or wide mediastinum. Impression: No acute disease. Consultation(s): Dr. Buster Perez of [facility] internal medicine. Case was discussed. The patient was evaluated in the ER for further management. HPI: The patient is a 39 year old male who presents to the Emergency Room with complaints of alcohol withdrawal. This started several weeks ago and is worse nia. The patient also notes the following associated symptoms, tremors, anxiety, diarrhea, occasional bright red blood per rectum, and concerns for dying due to withdrawal. The patient has been using different kinds of alcohol for relieving factors. Current pain is rated as 0/10. The patient has been consuming over 1/5 of alcohol a day. He is also drinking a box of wine. He has tried to slowly wean himself off alcohol by using measured amounts however he notes when he drops his amount he begins to have tremors. He did drink alcohol today prior to coming in and is currently feeling better because of that. He is employed. He notes that he had a cough 10 days ago and was tested for co ronavirus. This was negative. Pt denies trauma, headache, fevers, chills, diaphoresis, visual changes, neck pain, chest pain, breathing difficulties, nausea, vomiting, abdominal pain, back pain, melena, urinary symptoms, numbness, weakness, lymphadenopathy, rash, or other complaints. ROS: See above HPI for pertinent positives & negatives. A total of [10] systems reviewed and were otherwise negative. PAST MEDICAL HISTORY:Alcohol withdrawal, alcohol abuse, seizure PAST SURGICAL HISTORY:Appendectomy FAMILY HISTORY:[See Below] SOCIAL HISTORY:Significant alcohol abuse. 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 VITALS:[See Below] PHYSICAL EXAMINATION: GENERAL: Awake, alert, intoxicated-appearing, in no distress HENT: Normocephalic, atraumatic. Oropharynx unremarkable. EYES: Normal conjunctiva. Sclera non-icteric. NECK: Inspection normal. Non-tender. Supple. No nuchal rigidity. FROM. No masses. RESPIRATORY: Clear to auscultation. No wheezes. No rales. Normal respiratory effort. CARDIAC: Moderately tachycardic rate. Normal rhythm. No murmurs. No rubs. Extremities warm and well perfused. Pulses equal. No JVD. GI: Soft, non-distended. No tenderness to palpation. No rebound or guarding. No masses. RECTAL: Deferred. MUSCULOSKELETAL: Atraumatic. Chest examination reveals no tenderness. The back is symmetrical on inspection without obvious abnormality. There is no CVA tenderness to palpation. No joint edema. LOWER EXTREMITIES: Calves are equal size bilaterally and non-tender. No edema. No discoloration. NEURO: Intoxicated sensorium. No sensory or motor deficits noted. No asterixis. No drift. SKIN: No rash or jaundice noted. ED COURSE: [Critical Care:] [None] Yrn Colvin MD Past Med/Surg History Family History (Updated 10/22/19 @ 15:26 by Vahid Barclay DO) Other Depression Social History Preferred Language: Azeri Communication Ability: Effective Pmo Analyst Required: No Beliefs That Will Affect Care: None Current Living Situation: Alone Other Information That Helps Us Care for You: No Feels Safe at Home: Yes Safety Concerns: Feels Safe At This Time Smoking Status: Current some day smoker Tobacco Type: cigars ; Cigarettes Per Day: 1 every 2 days ; Do You Dip or Chew Tobacco: No ; Second Hand Exposure: No ; Tobacco Cessation Education Requested by Patient: No Hx Alcohol Use: Yes Alcohol type: hard liquor Hx Substance Use: No Allergies Allergies Allergy/AdvReac Type Severity Reaction Status Date / Time No Known Allergies Allergy Verified 12/17/19 13:36 Home Meds Previous Rx's Medication Instructions Recorded chlordiazepoxide HCl 25 mg PO BID PRN #30 cap 10/25/19 fluticasone propionate 2 spray NA BID 10 Days #15.8 ml 10/25/19 propranolol 40 mg PO BID 30 Days #60 tab 10/25/19 Results & Data (ED) Vital Signs Vital Signs - 24 hr 12/17/19 12:32 12/17/19 13:11 12/17/19 13:19 Temperature 36.8 C Temperature Source Oral Pulse Rate 121 H 126 H 123 H Pulse Rate [Apical] Pulse Rhythm Regular Pulse Strength Normal Respiratory Rate 20 17 17 Respiratory Effort / Characteristics Non-Labored Spontaneous Respiratory Depth Normal Respiratory Pattern Regular Blood Pressure 138/117 H 129/91 Blood Pressure [Left Arm] Blood Pressure Mean 124 113 Blood Pressure Mean [Left Arm] Blood Pressure Position Sitting Pulse Oximetry 95 96 Oxygen Delivery Method Room Air Sepsis Recent Fever Within 48 Hours No Sepsis New/Unexplained Change in Mental Status No Sepsis Action Taken by Nursing No Action Required 12/17/19 13:20 12/17/19 13:27 12/17/19 14:26 Temperature Temperature Source Pulse Rate 124 H 117 H Pulse Rate [Apical] 123 H Pulse Rhythm Regular Pulse Strength Respiratory Rate 20 22 Respiratory Effort / Characteristics Respiratory Depth Respiratory Pattern Blood Pressure Blood Pressure [Left Arm] 125/94 Blood Pressure Mean Blood Pressure Mean [Left Arm] 104 Blood Pressure Position Pulse Oximetry 96 96 96 Oxygen Delivery Method Room Air Room Air Sepsis Recent Fever Within 48 Hours Sepsis New/Unexplained Change in Mental Status Sepsis Action Taken by Nursing 12/17/19 14:56 Temperature Temperature Source Pulse Rate Pulse Rate [Apical] 125 H Pulse Rhythm Pulse Strength Respiratory Rate 22 Respiratory Effort / Characteristics Respiratory Depth Respiratory Pattern Blood Pressure Blood Pressure [Left Arm] 107/84 Blood Pressure Mean Blood Pressure Mean [Left Arm] 91 Blood Pressure Position Pulse Oximetry Oxygen Delivery Method Sepsis Recent Fever Within 48 Hours Sepsis New/Unexplained Change in Mental Status Sepsis Action Taken by Nursing Laboratory Data Result diagrams: 12/17/19 13:11 12/17/19 13:11 Lab Results 12/17/19 12/17/19 12/17/19 Range/Units 13:11 13:11 13:11 WBC 9.51 (4.8-10.8) K/uL RBC 5.75 (4.7-6.1) M/uL Hgb 19.1 H (14.0-18.0) g/dL Hct 53.9 H (42-52) % MCV 93.7 (80-100) fL MCH 33.2 (25-34) pg MCHC 35.4 (32-36) g/dL RDW Std Deviation 44.3 (36.4-46.3) fL RDW Coeff of Funmi 13.0 (11.5-14.5) % Plt Count 265 (130-400) K/uL MPV 10.1 (7.4-10.4) fL Immature Gran % (Auto) 0.6 % Neut % (Auto) 49.6 % Lymph % (Auto) 29.7 % Forest % (Auto) 15.9 % Eos % (Auto) 3.8 % Baso % (Auto) 0.4 % Immature Gran # (Auto) 0.06 H (0.00-0.02) K/uL Neut # (Auto) 4.72 (1.4-6.5) K/uL Lymph # (Auto) 2.82 (1.2-3.4) K/uL [place] # (Auto) 1.51 H (0.11-0.59) K/uL Eos # (Auto) 0.36 (0-0.5) K/uL Baso # (Auto) 0.04 (0-0.2) K/uL Absolute Nucleated RBC 0.00 (0-0) K/uL Nucleated RBC % (auto) 0.0 % PT 10.9 (9.0-12.0) Seconds INR 1.0 (0.9-1.1) Sodium 135 L (136-145) mmol/L Potassium 4.5 (3.5-5.1) mmol/L Chloride 99 (98-107) mmol/L Carbon Dioxide 23 (21-32) mmol/L Anion Gap 12.0 H (3-11) BUN 11 (7-18) mg/dl Creatinine 0.87 (0.6-1.4) mg/dl Est Cr Clr Drug Dosing 134.4 ml/min Est GFR ( Amer) 126.0 Est GFR (Non-Af Amer) 108.7 BUN/Creatinine Ratio 12.1 (10-20) Glucose 113 H (70-99) mg/dl Calcium 8.4 L (8.5-10.1) mg/dl Magnesium 2.6 H (1.8-2.4) mg/dl Total Bilirubin 0.4 (0.2-1) mg/dl AST 117 H (15-37) U/L ALT 164 H (12-78) U/L Alkaline Phosphatase 116 (45-117) U/L Total Creatine Kinase 73 (39-308) U/L Troponin I < 0.015 (0-0.045) ng/ml Total Protein 8.2 (6.4-8.2) gm/dl Albumin 4.0 (3.4-5.0) gm/dl Globulin 4.2 H (2.5-4.0) gm/dl Albumin/Globulin Ratio 1.0 (0.9-2) Lipase 144 (73-393) U/L Specimen Hemolysis Salicylates (2.8-20) mg/dl Acetaminophen (10-30) ug/ml Ethyl Alcohol mg/dL (0-3) mg/dl 12/17/19 12/17/19 Range/Units 13:11 13:11 WBC (4.8-10.8) K/uL RBC (4.7-6.1) M/uL Hgb (14.0-18.0) g/dL Hct (42-52) % MCV (80-100) fL MCH (25-34) pg MCHC (32-36) g/dL RDW Std Deviation (36.4-46.3) fL RDW Coeff of Funmi (11.5-14.5) % Plt Count (130-400) K/uL MPV (7.4-10.4) fL Immature Gran % (Auto) % Neut % (Auto) % Lymph % (Auto) % [place] % (Auto) % Eos % (Auto) % Baso % (Auto) % Immature Gran # (Auto) (0.00-0.02) K/uL Neut # (Auto) (1.4-6.5) K/uL Lymph # (Auto) (1.2-3.4) K/uL [place] # (Auto) (0.11-0.59) K/uL Eos # (Auto) (0-0.5) K/uL Baso # (Auto) (0-0.2) K/uL Absolute Nucleated RBC (0-0) K/uL Nucleated RBC % (auto) % PT (9.0-12.0) Seconds INR (0.9-1.1) Sodium (136-145) mmol/L Potassium (3.5-5.1) mmol/L Chloride (98-107) mmol/L Carbon Dioxide (21-32) mmol/L Anion Gap (3-11) BUN (7-18) mg/dl Creatinine (0.6-1.4) mg/dl Est Cr Clr Drug Dosing ml/min Est GFR ( Amer) Est GFR (Non-Af Amer) BUN/Creatinine Ratio (10-20) Glucose (70-99) mg/dl Calcium (8.5-10.1) mg/dl Magnesium (1.8-2.4) mg/dl Total Bilirubin (0.2-1) mg/dl AST (15-37) U/L ALT (12-78) U/L Alkaline Phosphatase (45-117) U/L Total Creatine Kinase (39-308) U/L Troponin I (0-0.045) ng/ml Total Protein (6.4-8.2) gm/dl Albumin (3.4-5.0) gm/dl Globulin (2.5-4.0) gm/dl Albumin/Globulin Ratio (0.9-2) Lipase (73-393) U/L Specimen Hemolysis Salicylates < 1.7 L (2.8-20) mg/dl Acetaminophen < 2 L (10-30) ug/ml Ethyl Alcohol mg/dL 264.8 H (0-3) mg/dl Administered Medications Lorazepam (Ativan) 2 mg in 4 mls @ 4 mls/min IV Q10M PRN PRN Reason: Alcohol Withdrawal Stop: 01/16/20 12:59 Last Admin: 12/17/19 14:57 Dose: 4 mls/min Documented by: [id number] Admin: 12/17/19 13:52 Dose: 4 mls/min Documented by: [id number] Discontinued Medications Multivitamins 10 ml/ Thiamine HCl 100 mg/ Folic Acid 1 mg/Sodium Chloride 1,011.2 mls @ 1,011.2 mls/hr IV .Q1H ONE Stop: 12/17/19 13:55 Last Infusion: 12/17/19 14:20 Dose: 0 mls/hr Documented by: [id number] Admin: 12/17/19 13:19 Dose: 1,011.2 mls/hr Documented by: [id number] Lorazepam (Ativan) 2 mg in 4 mls @ 4 mls/min IV NOW STA Stop: 12/17/19 13:01 Last Admin: 12/17/19 13:23 Dose: 4 mls/min Documented by: [id number] Discharge Plan Visit Data Chief Complaint: Detox Request Stated Complaint: WITHDRAWL, FEVER, COUGH, SOB TESTED AT [facility] ED Provider: Yrn Colvin Discharge Problem: Alcohol withdrawal, Alcohol abuse Patient Disposition: Admitted As Inpatient Discharge Instructions Interventions: ED Discharge Assessment Last Done: 12/17/19 15:39
--- NOTE | 2019-12-17 13:16 | XRay Report ---
XR chest 1V portable CLINICAL HISTORY: tachycardia, alcohol withdrawal COMPARISON STUDY: CT scan dated 06/02/2017 FINDINGS: The heart is normal in size. There is no lobar consolidation. There is no overt failure. Th ere are no pleural effusions. There is mild subtle interstitial prominence. IMPRESSION: Subtle interstitial prominence. No evidence of focal pulmonary consolidation. No evidence of overt failure. ACT 112: Negative or not required by law. Electronically signed by: Dmitriy Bone M.D. 12/17/2019 1:14 PM
[2019-12-17 13:34] LABS: Basophils # (auto) 0.04 K/uL (0-0.2); Basophils % (auto) 0.4 %; Eosinophils # (auto) 0.36 K/uL (0-0.5); Eosinophils % (auto) 3.8 %; Hematocrit (blood only) 53.9 % (42-52); Hemoglobin 19.1 g/dL (14.0-18.0); Immature Granulocytes # (auto) 0.06 K/uL (0.00-0.02); Immature Granulocytes % (auto) 0.6 %; Lymphocytes # (auto) 2.82 K/uL (1.2-3.4); Lymphocytes % (auto) 29.7 %; Mean Corpuscular Hemoglobin 33.2 pg (25-34); Mean Corpuscular Hgb Conc 35.4 g/dL (32-36); Mean Corpuscular Volume 93.7 fL (80-100); Mean Platelet Volume 10.1 fL (7.4-10.4); Monocytes # (auto) 1.51 K/uL (0.11-0.59); Monocytes % (auto) 15.9 %; Neutrophils # (auto) 4.72 K/uL (1.4-6.5); Neutrophils % (auto) 49.6 %; Platelet Count 265 K/uL (130-400); RDW Standard Deviation 44.3 fL (36.4-46.3); Red Blood Count 5.75 M/uL (4.7-6.1); White Blood Count 9.51 K/uL (4.8-10.8)
[2019-12-17 13:40] LABS: Prothrombin Time 10.9 Seconds (9.0-12.0)
[2019-12-17 13:47] LABS: Alanine Aminotransferase 164 U/L (12-78); Aspartate Aminotransferase 117 U/L (15-37); BUN Creatinine Ratio 12.1 (10-20); Blood Urea Nitrogen 11 mg/dl (7-18); Calcium 8.4 mg/dl (8.5-10.1); Carbon Dioxide 23 mmol/L (21-32); Chloride 99 mmol/L (98-107); Creatinine Clr Calc Pharmacy 134.4 ml/min; Est GFR (Non-African American) 108.7; Glucose 113 mg/dl (70-99); Lipase 144 U/L (73-393); Magnesium 2.6 mg/dl (1.8-2.4); Potassium 4.5 mmol/L (3.5-5.1); Sodium 135 mmol/L (136-145)
[2019-12-17 13:52] LABS: Alkaline Phosphatase 116 U/L (45-117); Bilirubin,Total 0.4 mg/dl (0.2-1); Creatine Kinase 73 U/L (39-308); Globulin 4.2 gm/dl (2.5-4.0); Total Protein 8.2 gm/dl (6.4-8.2); Troponin I < 0.015 ng/ml (0-0.045)
[2019-12-17] MEDS: LORazepam 2 MG/4 ML VIAL IV PRN ×4 (13:52→20:17)
[2019-12-17 13:58] LABS: Acetaminophen < 2 ug/ml (10-30); Salicylate < 1.7 mg/dl (2.8-20)
--- NOTE | 2019-12-17 14:56 | Electrocardiogram Report ---
Test Reason : Blood Pressure : / mmHG Vent. Rate : 120 BPM Atrial Rate : 120 BPM P-R Int : 154 ms QRS Dur : 078 ms QT Int : 306 ms P-R-T Axes : 055 054 035 degrees QTc Int : 432 ms Sinus tachycardia Otherwise normal ECG When compared with ECG of 22-OCT-2019 08:30, No significant change was found Confirmed by Pierce Henson ([id number]) on 12/17/2019 2:55:59 PM Referred By: REFERRED SELF Confirmed By:Pierce Henson
--- NOTE | 2019-12-17 15:03 | History & Physical Report ---
Date of Service December 17, 2019 Assessment & Plan (1) Alcohol withdrawal: Will admit patient to a monitored bed. Monitor expectantly for significant alcohol withdrawal. Placed on the WAS scale with intermittent Ativan dosing. Continue thiamine and folate supplementation as well. Patient a ppears to be hydrated but can be given IV fluids as needed. Symptomatic treatment for further symptoms. As patient has had a relapse in the past, will require inpatient versus outpatient follow-up once acute detox is complete. (2) Panic attacks: Patient seems to have a significant psych history of panic attacks. I will get Ativan here as noted above. Again, will need an outpatient follow-up plan once acute detox is completed. History of Present Illness Primary Care Provider: NO PCP This is a 39-year-old male with past medical history of anxiety disorder and chronic alcoholism that presents today for acute alcohol detox. Patient is somewhat limited historian as he is not very verbal with me. Patient was here from for similar request. He was successfully detox from alcohol at that time. He was discharged but he tells me he did not follow- up for any outpatient counseling or rehab program. Patient tells me he was dry for approximately a month and then started consuming alcohol again. He has significant anxiety and connects this with his drinking. He typically drinks 1/5 of hard liquor or an entire box of wine a night. He tells me he wants to quit as it is difficult for him to continue to function and work as he is usuall y intoxicated. He tells me his last drink was a glass of wine earlier today prior to coming in and he does not fact have an alcohol level of 264.8 on presentation. Allergies Allergy/AdvReac Type Severity Reaction Status Date / Time No Known Allergies Allergy Verified 12/17/19 13:36 Home Medications Home Medications Medication Instructions Recorded Confirmed Type chlordiazepoxide HCl 25 mg PO BID PRN #30 cap 10/25/19 12/17/19 Rx fluticasone propionate 2 spray NA BID 10 Days #15.8 ml 10/25/19 12/17/19 Rx propranolol 40 mg PO BID 30 Days #60 tab 10/25/19 12/17/19 Rx Past Med/Surg History Family History (Updated 10/22/19 @ 15:26 by Vahid Barclay DO) Other Depression Social History Preferred Language: Kenyan Communication Ability: Effective Manager Store Required: No Beliefs That Will Affect Care: None Current Living Situation: Alone Feels Safe at Home: Yes Smoking Status: Former smoker Tobacco Type: cigars ; Cigarettes Per Day: 1 every 2 days ; Second Hand Exposure: No ; Hx Alcohol Use: Yes Alcohol type: hard liquor Hx Substance Use: No Review of Systems Constitutional: no fever, no chills, no weakness, no weight loss and no weight gain Eyes: as per Subjective / HPI Respiratory: no cough, no chest congestion, no dyspnea and no dyspnea on exertion Cardiovascular: no chest pain, no orthopnea, no palpitations, no lightheadedness and no edema Gastrointestinal: no abdominal pain, no nausea, no vomiting, no constipation and no diarrhea/loose stools Musculoskeletal: no back pain, no neck pain, no joint pain, no stiffness and no myalgia Integumentary: no rash Neurologic: + tremor(s) and + dizziness; no gait abnormality, no unsteadiness, no falls, no generalized weakness, no headache(s) and no confusion Physical Exam Constitutional: cooperative; no acute distress Neck: trachea midline, no thyromegaly Respiratory: normal respiratory effort Auscultation: lungs clear to auscultation bilaterally; no crackles, no rales, no rhonchi and no wheezes Cardiovascular: Rate/Rhythm: regular rate and regular rhythm Heart Sounds: normal S1 and normal S2 Gastrointestinal (Abdomen): Inspection/Auscultation: abdomen normal to inspection Percussion/Palpation: abdomen soft; abdomen nontender, no guarding, abdomen not rigid and no hepatosplenomegaly Skin: no rashes, warm and dry Results & Data Results & Data ([facility]) Vital Signs (Past 12 Hours) Vital Signs Temp Pulse Pulse Resp BP BP Pulse Ox 12/17/19 14:56 125 H 22 107/84 12/17/19 14:26 123 H 22 125/94 96 12/17/19 13:27 117 H 96 12/17/19 13:20 124 H 20 96 12/17/19 13:19 123 H 17 129/91 96 12/17/19 13:11 126 H 17 12/17/19 12:32 36.8 C 121 H 20 138/117 H 95 Laboratory Results WBCs 9.5, hemoglobin 90.1, hematocrit of 53.9, platelets of 265. INR is 1. Sodium 135, potassium 4.5, chloride 99, CO2 23, creatinine 0.87 with BUN 11. Glucose is 113. Calcium 8.4. Ranging 2.6. AST is 117 with an ALT of 164. Salicylate and acetaminophen levels are nondetectable. Alcohol level is 264.8. Diagnostic Findings XR chest 1V portable CLINICAL HISTORY: tachycardia, alcohol withdrawal COMPARISON STUDY: CT scan dated 06/02/2017 FINDINGS: The heart is normal in size. There is no lobar consolidation. There is no overt failure. There are no pleural effusions. There is mild subtle interstitial prominence. IMPRESSION: Subtle interstitial prominence. No evidence of focal pulmonary consolidation. No evidence of overt failure. PG Care Time/CCT Total # of Minutes Spent Total Time Spent with Patient: Total time spent is greater than 50% in coordination of care (as documented) at patient's floor/unit and/or counseling patient: Coding Level of Care Code 05069 Initial Inpt Care Lvl 3 Diagnoses Alcohol withdrawal F10.239 Panic attacks F41.0
[2019-12-17] MEDS ORDERED: POLYETHYLENE (MIRALAX) 17 GM PACK PO PRN (16:51)
[2019-12-17] MEDS ORDERED: ONDANSETRON INJ 2 MG/ML 2 ML VIAL IV PRN (16:51)
[2019-12-17] MEDS ORDERED: MAGNESIUM HYDROXIDE SUSP 30 ML UDC PO PRN (16:51)
[2019-12-17] MEDS ORDERED: ATIVAN IV ALCOHOL WITHDRAWL IV PRN (16:51)
[2019-12-17] MEDS ORDERED: LORazepam 3 MG/6 ML VIAL IV PRN (16:51)
[2019-12-17] MEDS: ENOXAPARIN INJ 40 MG/0.4 ML SYR SQ SCH (17:56)
[2019-12-17] MEDS: SODIUM CHLORIDE 0.9% 1000ML 1,000 ML IV SCH (17:58)
[2019-12-17] MEDS: FLUTICASONE PROPIONATE NA SPR 16 GM BTL SCH (21:28)
[2019-12-17] MEDS: PROPRANOLOL HCL 20 MG TAB PO SCH (21:28)
[2019-12-17] MEDS ORDERED: COUGH DROP (SUGAR FREE) LOZ 24 LOZ/1 BOX BUCCAL STA (23:26)
[2019-12-17] MEDS ORDERED: COUGH DROP (SUGAR FREE) LOZ 24 LOZ/1 BOX BUCCAL ONE (23:29)
[2019-12-17 23:55] LABS: Appearance Urine Clear (Clear); Bacteria Urine Automated Negative (Negative); Bilirubin Urine Negative (Negative); Blood Urine Negative (Negative); Cast Urine Automated 0 /lpf (0-5); Color Urine Dark Yellow; Epithelial Cell Urine Auto 0-5 /lpf (0-5); Glucose Urine UA Negative (Negative); Ketones Urine Trace (Negative); Leukocyte Esterase Urine Negative (Negative); Nitrite Urine Negative (Negative); Protein Urine Trace (Negative); RBC Urine Automated 0-4 /hpf (0-4); Specific Gravity Urine 1.028 (1.000-1.030); Urobilinogen Urine Negative (Negative); WBC Urine Automated 0 /hpf (0-5)
[2019-12-18 00:18] LABS: Amphetamines+Metham, Urine Neg (Neg); Barbiturates, Urine Neg (Neg); Benzodiazepine, Urine Pos (Neg); Cocaine, Urine Neg (Neg); MDMA (Ecstacy), Urine Neg (Neg); Methadone, Urine Neg (Neg); Opiate, Urine Neg (Neg); Phencyclidine, Urine Neg (Neg)
[2019-12-18] MEDS: LORazepam 1 MG/2 ML VIAL IV PRN ×2 (01:03→20:38)
[2019-12-18 07:10] LABS: Basophils # (auto) 0.03 K/uL (0-0.2); Basophils % (auto) 0.4 %; Eosinophils # (auto) 0.34 K/uL (0-0.5); Eosinophils % (auto) 4.9 %; Hematocrit (blood only) 46.5 % (42-52); Hemoglobin 15.9 g/dL (14.0-18.0); Immature Granulocytes # (auto) 0.05 K/uL (0.00-0.02); Immature Granulocytes % (auto) 0.7 %; Lymphocytes % (auto) 21.8 %; Mean Corpuscular Hemoglobin 32.3 pg (25-34); Mean Corpuscular Hgb Conc 34.2 g/dL (32-36); Mean Corpuscular Volume 94.3 fL (80-100); Mean Platelet Volume 10.4 fL (7.4-10.4); Monocytes # (auto) 0.95 K/uL (0.11-0.59); Monocytes % (auto) 13.8 %; Neutrophils # (auto) 4.02 K/uL (1.4-6.5); Neutrophils % (auto) 58.4 %; Platelet Count 210 K/uL (130-400); RDW Coefficient of Variation 12.9 % (11.5-14.5); RDW Standard Deviation 44.9 fL (36.4-46.3); Red Blood Count 4.93 M/uL (4.7-6.1); White Blood Count 6.89 K/uL (4.8-10.8)
[2019-12-18 07:29] LABS: BUN Creatinine Ratio 14.8 (10-20); Calcium 7.8 mg/dl (8.5-10.1); Creatinine Clr Calc Pharmacy 134.2 ml/min; Est GFR (Non-African American) 108.7; Magnesium 2.2 mg/dl (1.8-2.4); Potassium 3.8 mmol/L (3.5-5.1)
[2019-12-18] MEDS: FLUTICASONE PROPIONATE NA SPR 16 GM BTL SCH ×2 (07:53→20:39)
[2019-12-18] MEDS: PROPRANOLOL HCL 20 MG TAB PO SCH ×2 (07:54→20:38)
[2019-12-18] MEDS: FOLIC ACID 1 MG TAB PO SCH (07:55)
[2019-12-18] MEDS: THIAMINE HCL 100 MG TAB PO SCH (07:56)
[2019-12-18] MEDS: LORazepam 2 MG/4 ML VIAL IV PRN ×3 (08:03→15:32)
[2019-12-18] MEDS: SODIUM CHLORIDE 0.9% 1000ML 1,000 ML IV SCH (08:03)
--- NOTE | 2019-12-18 15:57 | Hospitalist Progress Note ---
Date of Service December 18, 2019 Assessment & Plan (1) Alcohol withdrawal: no major signs of withdrawal using Ativan PRN likely needs 24-48 hours more inpatient care, should be ready for discharge would NOT give Ativan on discharge follow up and rehab is difficult due to lack of insurance he was supposed to follow up with [facility] after discharge in the beginning of October but he never called to make appoitment he will need to take responsibility after discharge (2) Panic attacks: Patient seems to have a significant psych history of panic attacks Ativan was ordered PRN by admitting physician, continue for now he admits that he drinks to control anxiety and panic again, encouraged him to follow up with [facility] who can refer to to counseling Admission and Anticipated Discharge Date Admission Date: December 17, 2019 Subjective patient feeling okay today, going through some withdrawal, improved with Ativan discussed with him about the last time he was discharged as I was the discharging provider we had a plan for him to follow up with [facility] as he does not have insurance, they would then be able to refer him to counseling, rehab services he says that he never followed up with [facility], he could not give a reason he was able to stay sober for a month but then needed to start drinking again to treat anxiety he ate okay today, no nausea vitals stable CBC and BMP normal on labs today Review of Systems Review of Systems: All systems reviewed & are unremarkable except as noted in HPI & below Constitutional: + fatigue and + weakness; no fever, no chills and no sweats Respiratory: no cough and no dyspnea Cardiovascular: no chest pain and no edema Gastrointestinal: no abdominal pain, no nausea, no vomiting, no constipation and no diarrhea/loose stools Neurologic: no tremor(s) Psychiatric: + anxiety Physical Exam Constitutional: WD/WN, vitals as above Eyes: PERRL, conjunctivae normal, anicteric sclerae ENMT: external ear and nose normal, oropharynx normal Neck: trachea midline, no thyromegaly Respiratory: normal respiratory effort, lungs clear to auscultation Cardiovascular: RRR, no murmur, no edema Gastrointestinal (Abdomen): normal bowel sounds, soft, nontender, no hepatosplenomegaly Musculoskeletal: no cyanosis or clubbing, extremities motor strength 5/5 Skin: no rashes, warm and dry Neurologic: patellar DTR's 2+ bilat, sensation intact and PERRL, EOMI, accommodation nl, no face palsy, no dysarthria Psychiatric: Orientation: alert and oriented x 3 Affect: + anxious affect Lymphatic: no cervical or axillary lymphadenopathy Results & Data Results & Data ([facility]) Vital Signs (Past 12 Hours) Vital Signs Temp Pulse Resp BP Pulse Ox 12/18/19 15:23 36.6 C 81 18 129/86 95 12/18/19 11:20 36.6 C 83 19 116/71 96 12/18/19 08:11 36.6 C 85 19 136/89 94 Laboratory Results Laboratory Results - last 24 hr 12/17/19 12/17/19 12/17/19 17:05 23:17 23:17 WBC RBC Hgb Hct MCV MCH MCHC RDW Std Deviation RDW Coeff of Funmi Plt Count MPV Immature Gran % (Auto) Neut % (Auto) Lymph % (Auto) Barton % (Auto) Eos % (Auto) Baso % (Auto) Immature Gran # (Auto) Neut # (Auto) Lymph # (Auto) Barton # (Auto) Eos # (Auto) Baso # (Auto) Sodium Potassium Chloride Carbon Dioxide Anion Gap BUN Creatinine Est Cr Clr Drug Dosing Est GFR ( Amer) Est GFR (Non-Af Amer) BUN/Creatinine Ratio Glucose Calcium Magnesium Folate > 24.00 Urine Color Dark Yellow Urine Appearance Clear Urine pH 7.0 Ur Specific [place] 1.028 Urine Protein Trace H Urine Glucose (UA) Negative Urine Ketones Trace H Urine Blood Negative Urine Nitrite Negative Urine Bilirubin Negative Urine Urobilinogen Negative Ur Leukocyte Esterase Negative Urine WBC (Auto) 0 Urine RBC (Auto) 0-4 U Hyaline Cast (Auto) 0 U Epithel Cells (Auto) 0-5 Urine Bacteria (Auto) Negative Urine Opiates Screen Neg Ur Methadone, Qual Neg Urine Barbiturates Neg Ur Phencyclidine (PCP) Neg U Amphetamin/Meth Scrn Neg MDMA (Ecstasy) Screen Neg U OH-Alprazolam Confrm U Benzodiazepines Scrn Pos H 7-Amino Clonazepam Ur Nordiazepam Confirm U OH-ethylflurazepam U Lorazepam Cnf GC/MS U Oxazepam Confm GC/MS Ur Temazepam Confirm U OH-Triazolam Confirm U OH-Midazolam Confirm Ur Cocaine Metabolite Neg U Marijuana (THC) Screen Neg Drug Screen Comment 12/17/19 12/18/19 12/18/19 23:17 06:45 06:45 WBC 6.89 RBC 4.93 Hgb 15.9 D Hct 46.5 MCV 94.3 MCH 32.3 MCHC 34.2 RDW Std Deviation 44.9 RDW Coeff of Funmi 12.9 Plt Count 210 MPV 10.4 Immature Gran % (Auto) 0.7 Neut % (Auto) 58.4 Lymph % (Auto) 21.8 Barton % (Auto) 13.8 Eos % (Auto) 4.9 Baso % (Auto) 0.4 Immature Gran # (Auto) 0.05 H Neut # (Auto) 4.02 Lymph # (Auto) 1.50 Barton # (Auto) 0.95 H Eos # (Auto) 0.34 Baso # (Auto) 0.03 Sodium 139 Potassium 3.8 D Chloride 106 Carbon Dioxide 26 Anion Gap 7.0 BUN 13 Creatinine 0.87 Est Cr Clr Drug Dosing 134.2 Est GFR ( Amer) 126.0 Est GFR (Non-Af Amer) 108.7 BUN/Creatinine Ratio 14.8 Glucose 99 Calcium 7.8 L Magnesium 2.2 Folate Urine Color Urine Appearance Urine pH Ur Specific [place] Urine Protein Urine Glucose (UA) Urine Ketones Urine Blood Urine Nitrite Urine Bilirubin Urine Urobilinogen Ur Leukocyte Esterase Urine WBC (Auto) Urine RBC (Auto) U Hyaline Cast (Auto) U Epithel Cells (Auto) Urine Bacteria (Auto) Urine Opiates Screen Ur Methadone, Qual Urine Barbiturates Ur Phencyclidine (PCP) U Amphetamin/Meth Scrn MDMA (Ecstasy) Screen U OH-Alprazolam Confrm Pending U Benzodiazepines Scrn 7-Amino Clonazepam Pending Ur Nordiazepam Confirm Pending U OH-ethylflurazepam Pending U Lorazepam Cnf GC/MS Pending U Oxazepam Confm GC/MS Pending Ur Temazepam Confirm Pending U OH-Triazolam Confirm Pending U OH-Midazolam Confirm Pending Ur Cocaine Metabolite U Marijuana (THC) Screen Drug Screen Comment Pending Medications Administered Current Inpatient Medications Al Hydrox/Mg Hydrox/Simethicone (Maalox) 30 ml PO Q6H PRN PRN Reason: Dyspepsia Stop: 01/16/20 16:50 Enoxaparin Sodium (Lovenox) 40 mg SQ Q24H KEN Stop: 01/16/20 17:29 Last Admin: 12/17/19 17:56 Dose: Not Given Documented by: Fluticasone Propionate (Flonase) 2 sprays NA BID [facility] Stop: 01/16/20 20:59 Last Admin: 12/18/19 07:53 Dose: 2 sprays Documented by: Folic Acid (Folvite) [facility] Stop: 01/17/20 08:59 Last Admin: 12/18/19 07:55 Dose: 1 mg Documented by: Lorazepam (Ativan) 1 mg in 2 mls @ 2 mls/min IV UD PRN; Protocol PRN Reason: EtOH Withdrawl AWSS Score 6,7 Stop: 01/16/20 16:50 Last Admin: 12/18/19 01:03 Dose: 2 mls/min Documented by: Lorazepam (Ativan) 2 mg in 4 mls @ 4 mls/min IV UD PRN; Protocol PRN Reason: EtOH Withdrawl AWSS Score 8,9 Stop: 01/16/20 16:50 Last Admin: 12/18/19 15:32 Dose: 4 mls/min Documented by: Lorazepam (Ativan) 3 mg in 6 mls @ 4 mls/min IV ONCE PRN; Protocol PRN Reason: EtOH Withdrawl AWSS Score >=10 Stop: 01/16/20 16:50 Sodium Chloride (Nss 1000ml) 1,000 mls @ 60 mls/hr IV .[id number] [facility] Stop: 01/16/20 16:50 Last Admin: 12/18/19 08:03 Dose: 60 mls/hr Documented by: Magnesium Hydroxide (Milk Of Magnesia) 30 ml PO Q6H PRN PRN Reason: Constipation Stop: 01/16/20 16:50 Ondansetron HCl (Zofran) 4 mg IV Q6H PRN PRN Reason: Nausea Stop: 01/16/20 16:50 Polyethylene Glycol (Miralax Powder Packet) 17 gm PO DAILY PRN PRN Reason: Constipation Stop: 01/16/20 16:50 Propranolol HCl (Inderal) 40 mg PO BID [facility] Stop: 01/16/20 20:59 Last Admin: 12/18/19 07:54 Dose: 40 mg Documented by: Thiamine HCl (Vitamin B-1) 100 mg PO QAM KEN Stop: 01/17/20 08:59 Last Admin: 12/18/19 07:56 Dose: 100 mg Documented by: PG Care Time/CCT Total # of Minutes Spent Total Time Spent with Patient: Total time spent is greater than 50% in coordination of care (as documented) at patient's floor/unit and/or counseling patient: Coding Level of Care Code 12801 Subseq Hosp Care Lvl 2 Diagnoses Alcohol withdrawal F10.239 Panic attacks F41.0
[2019-12-18] MEDS: ENOXAPARIN INJ 40 MG/0.4 ML SYR SQ SCH (16:34)
[2019-12-19] MEDS: LORazepam 1 MG/2 ML VIAL IV PRN ×2 (00:40→06:04)
[2019-12-19] MEDS: SODIUM CHLORIDE 0.9% 1000ML 1,000 ML IV SCH ×2 (03:56→19:37)
[2019-12-19] MEDS: FLUTICASONE PROPIONATE NA SPR 16 GM BTL SCH ×2 (07:41→20:38)
[2019-12-19] MEDS: PROPRANOLOL HCL 20 MG TAB PO SCH ×2 (07:42→20:39)
[2019-12-19] MEDS: FOLIC ACID 1 MG TAB PO SCH (07:43)
[2019-12-19] MEDS: THIAMINE HCL 100 MG TAB PO SCH (07:43)
[2019-12-19 14:15] LABS: Albumin Level 3.4 gm/dl (3.4-5.0); BUN Creatinine Ratio 14.8 (10-20); Calcium 8.2 mg/dl (8.5-10.1); Creatinine Clr Calc Pharmacy 129.8 ml/min; Est GFR (African American) 124.3; Est GFR (Non-African American) 107.2; Potassium 3.7 mmol/L (3.5-5.1)
[2019-12-19 14:17] LABS: Albumin Globulin Ratio 0.9 (0.9-2); Bilirubin,Total 0.7 mg/dl (0.2-1); Globulin 3.9 gm/dl (2.5-4.0); Total Protein 7.3 gm/dl (6.4-8.2)
--- NOTE | 2019-12-19 15:04 | Hospitalist Progress Note ---
Date of Service December 19, 2019 Assessment & Plan (1) Alcohol withdrawal: No major signs of withdrawal. - CHESTER is generally 2-3. Last Ativan was 12/19/2019 at 6am. - Requesting acamprosate on discharge. (2) Panic attacks: Patient seems to have a significant psych history of panic attacks. He admits that he drinks to control anxiety and panic. - Started propranolol while back in the hospital which may be beneficial. - Encouraged him to follow up with [facility] who can refer to to counseling & further psychiatric care (3) DVT prophylaxis: Lovenox Admission and Anticipated Discharge Date Admission Date: December 17, 2019 Subjective Some withdrawal this morning, less so this afternoon. Reports no fevers/chills, chest pain, shortness of breath, abdominal pain, nausea, or vomiting. Physical Exam Constitutional: WD/WN, vitals as above cooperative; no acute distress Eyes: EOM intact bilaterally; no conjunctival abnormality ENMT: external ear and nose normal, oropharynx normal Neck: trachea midline, no thyromegaly normal visual inspection Respiratory: normal respiratory effort, lungs clear to auscultation no respiratory distress Cardiovascular: RRR, no murmur, no edema Gastrointestinal (Abdomen): Inspection/Auscultation: abdomen normal to inspection; abdomen not distended Musculoskeletal: no cyanosis or clubbing, extremities motor strength 5/5 Skin: no rashes, warm and dry Neurologic: moves all extremities and awake; not confused Motor/Sensory: no tremor and no asterixis Psychiatric: Orientation: alert, oriented to person and cooperative Results & Data Results & Data ([facility]) Vital Signs (Past 12 Hours) Vital Signs Temp Pulse Resp BP Pulse Ox 12/19/19 07:18 36.8 C 73 18 125/84 97 12/19/19 03:00 36.7 C 72 17 115/75 98 PG Care Time/CCT Total # of Minutes Spent Total Time Spent with Patient: Total time spent is greater than 50% in coordination of care (as documented) at patient's floor/unit and/or counseling patient: Coding Level of Care Code 07844 Subseq Hosp Care Lvl 2 Diagnoses Alcohol withdrawal F10.239 Panic attacks F41.0 DVT prophylaxis Z29.9
[2019-12-19] MEDS: ENOXAPARIN INJ 40 MG/0.4 ML SYR SQ SCH (16:11)
[2019-12-19] MEDS: ALUMINUM/MAGNESIUM SUSP 30 ML UDC PO PRN (18:03)
[2019-12-20 06:15] LABS: Creatinine Clr Calc Pharmacy 139.1 ml/min; Est GFR (African American) 127.8; Est GFR (Non-African American) 110.3
[2019-12-20] MEDS: FLUTICASONE PROPIONATE NA SPR 16 GM BTL SCH (07:47)
[2019-12-20] MEDS: FOLIC ACID 1 MG TAB PO SCH (07:47)
[2019-12-20] MEDS: PROPRANOLOL HCL 20 MG TAB PO SCH (07:48)
[2019-12-20] MEDS: THIAMINE HCL 100 MG TAB PO SCH (07:48)
[2019-12-20] MEDS: SODIUM CHLORIDE 0.9% 1000ML 1,000 ML IV SCH (07:52)
[2019-12-20 08:59] LABS: 7-Aminoclonaz, Confirm NEGATIVE ng/mL (<25); Hydro-Alp Ur, GC/MS NEGATIVE ng/mL (<25); Hydroxyethylflurazepam, Conf NEGATIVE ng/mL (<50); Hydroxymidazolam Ur, GC/MS NEGATIVE ng/mL (<50); Hydroxytriazolam NEGATIVE ng/mL (<50); Lorazepam, Ur GC/MS >2000 ng/mL (<50); Nordiazepam, Confirm NEGATIVE ng/mL (<50); Oxazepam Ur, GC/MS NEGATIVE ng/mL (<50); Temazepam, Confirm NEGATIVE ng/mL (<50)
[2019-12-20] MEDS ORDERED: chlordiazePOXIDE HCl 25 MG CAP PO ONE (10:50)
[2019-12-20] MEDS: ALUMINUM/MAGNESIUM SUSP 30 ML UDC PO PRN (11:21)
--- NOTE | 2019-12-20 17:59 | Discharge Summary ---
Date of Service December 20, 2019 Admission HPI Per Admitting Provider This is a 39-year-old male with past medical history of anxiety disorder and chronic alcoholism that presents today for acute alcohol detox. Patient is somewhat limited historian as he is not very verbal with me. Patient was here from for similar request. He was successfully detox from alcohol at that time. He was discharged but he tells me he did not follow- up for any outpatient counseling or rehab program. Patient tells me he was dry for approximately a month and then started consuming alcohol again. He has significant anxiety and connects this with his drinking. He typically drinks 1/5 of hard liquor or an entire box of wine a night. He tells me he wants to quit as it is difficult for him to continue to function and work as he is usually intoxicated. He tells me his last drink was a glass of wine earlier today prior to coming in and he does not fact have an alcohol level of 264.8 on presentation. Principal Diagnosis Alcohol withdrawal Discharge Exam Constitutional WD/WN, vitals as above Eyes PERRL, conjunctivae normal, anicteric sclerae ENMT external ear and nose normal, oropharynx normal Neck trachea midline, no thyromegaly Respiratory normal respiratory effort, lungs clear to auscultation Cardiovascular RRR, no murmur, no edema Gastrointestinal (Abdomen) normal bowel sounds, soft, nontender, no hepatosplenomegaly Musculoskeletal no cyanosis or clubbing, extremities motor strength 5/5 Skin no rashes, warm and dry Neurologic patellar DTR's 2+ bilat, sensation intact and PERRL, EOMI, accommodation nl, no face palsy, no dysarthria Psychiatric Orientation: alert and oriented x 3 Affect: + anxious affect Lymphatic no cervical or axillary lymphadenopathy Discharge Data Allergies Allergy/AdvReac Type Severity Reaction Status Date / Time No Known Allergies Allergy Verified 12/17/19 13:36 Consultations 12/17/19 16:51 Consult Case Management - Discharge Planning Routine Hospital Course (1) Alcohol withdrawal: No major signs of withdrawal. - CHESTER is generally 2-3. Last Ativan was 12/19/2019 at 6am. will prescribe a taper of Librium on discharge to help with withdrawal symptoms and anxiety discussed with him that he should only use as prescribed provided him with number for [facility] for follow up, asked him to call today or tomorrow to get earliest available appt provided him with number for [facility] for follow up, asked him to call today or tomorrow (2) Panic attacks: Patient seems to have a significant psych history of panic attacks. He admits that he drinks to control anxiety and panic. - Started propranolol while back in the hospital which may be beneficial. - Encouraged him to follow up with [facility] who can help facilitate referral to [facility] (3) DVT prophylaxis: Lovenox Total Time Total Time Spent Total Time Spent (In Minutes): 32 minutes Total Time Includes: Examination of the Patient, Discharge Planning, Medication Reconciliation and Communication With Other Providers (several discussion with case management, calls made to [facility], [facility]) Discharge Plan Discharge Items Patient Disposition: Home - Self-Care Reason For Visit: ALCOHOL WITHDRAWAL Discharge Diagnosis: Alcohol withdrawal Condition on Discharge: Good Goals: control panic and withdrawal with Librium taper follow up with [facility] follow up with [facility] counseling Activity: Resume your previous activity Non-emergency contact: Primary Care Provider Call non-emergency contact if: your symptoms worsen Follow-up/Referrals: PCP,NO [Primary Care Provider] - Diet: Regular Addtl Attending Provider Instructions: Medications: - CHLORDIAZEPOXIDE: take as prescribed to help with panic and alcohol withdrawal take 25mg three times a day (every 8 hours) for 7 days, then twice a day (every 12 hours) for 7 days then take once a day as needed until prescription complete please contact [facility] today or tomorrow morning for follow up, please call [facility] for earliest available appointment, number is [phone] Pending Studies at Discharge: No Stand-Alone Forms: My [facility] [employer], Work/School Release (Inpt), Smoking Cessation, Suicide Prevention Resources Medications and DC Order Prescriptions: New chlordiazepoxide HCl 25 mg capsule 25 mg PO Q8H PRN (Reason: anxiety) Qty: 42 RF: 0 Continued propranolol 40 mg tablet 40 mg PO BID 30 Days Qty: 60 RF: 2 fluticasone propionate 50 mcg/actuation [place],Suspension 2 spray NA BID 10 Days Qty: 15.8 RF: 1 Discontinued chlordiazepoxide HCl 25 mg capsule 25 mg PO BID PRN (Reason: alcohol withdrawal) Qty: 30 RF: 0 Discharge Orders: Discharge Order (Routine); Ordered 04/30/20 Ordered By: Vahid Flores/Other Patient Handouts: Alcohol Use Disorder, Alcoholism Myths Facts, Alcoholism Get Help, Chlordiazepoxide capsules Admission Data Admit Date/Time: 12/17/19 15:17 Attending Provider: Vahid Barclay Admit Provider: Buster Perez Primary Care Provider: PCP,NO Other Interventions: Discharge Summary Assessment (RN) Last Done: 12/20/19 14:06 DC Date/Time DO NOT enter until pt leaves facility: 12/20/19 15:19 Coding Level of Care Code D/C Day Management >30 mins Diagnoses Alcohol withdrawal F10.239 Panic attacks F41.0 DVT prophylaxis Z29.9
== END 2019-12-20 15:19 | disposition home or self-care (01) | DRG 897 ==
LOC: ED 12:26 → 2S 15:17 → SUATTDRO 15:17 → 2S 15:39